=== PATIENT | male | born 1975 ===

== ENCOUNTER 2016-10-01 21:31 | Observation (INO) | payer MEDICAID ==
[2016-10-01 21:36] VITALS: BMI 24.7
--- NOTE | 2016-10-01 22:08 | ED PDOC ---
Arrival/HPI - General Chief Complaint: Abdominal Pain Time Seen by Provider: 10/01/16 21:38 Historian: Patient - History of Present Illness Narrative History of Present Illness (Text): 10/01/16 22:01 Wilfredo Amos is a 41 year old male, with a history of cardiomyopathy with a recent pacemaker placement, presents to the emergency department complaining of intermittent episodes of abdominal muscle spasms/twitching since today afternoon. Patient states that symptoms presented after device settings were reconfigured by device pharmaceutical laboratory technician earlier today. He was seen at [facility] today for evaluation of pain at site of surgery. Currently denies any pain to the area. States that he experienced similar symptoms last week, which resolved after changes to pacemaker settings. Denies any fever, chills, chest pain, shortness of breath, nausea, vomiting, diarrhea, or any other complaints at this time. Time/Duration: Other (today afternoon ) Symptom Onset: Gradual Symptom Course: Intermittent Severity Level: Mild Activities at Onset: Light Past Medical History - Provider Review Nursing Documentation Reviewed: Yes - Infectious Disease Hx of Infectious Diseases: None - Tetanus Immunization Tetanus Immunization: Up to Date - Past Medical History Past Medical History: No Previous - Cardiac Hx Cardiac Disorders: Yes Other/Comment: Unknown cardiac problem - Pulmonary Hx Respiratory Disorders: No - Neurological Hx Neurological Disorder: No - HEENT Hx HEENT Disorder: No - Renal Hx Renal Disorder: Yes Hx Kidney Stones: Yes - Endocrine/Metabolic Hx Endocrine Disorders: No - Hematological/Oncological Hx Blood Disorders: No - Integumentary Hx Dermatological Disorder: No - Musculoskeletal/Rheumatological Hx Musculoskeletal Disorders: No - Gastrointestinal Hx Gastrointestinal Disorders: No - Genitourinary/Gynecological Hx Genitourinary Disorders: No - Psychiatric Hx Psychophysiologic Disorder: No Hx Depression: No Hx Substance Use: No - Past Surgical History Past Surgical History: No Previous - Surgical History Other/Comment: Pt reports he had a defibrillator placed two weeks ago at [facility] - Anesthesia Hx Anesthesia: Yes Hx Anesthesia Reactions: No Hx Malignant Hyperthermia: No - Suicidal Assessment Feels Threatened In Home Enviroment: No Family/Social History - Physician Review Nursing Documentation Reviewed: Yes Family/Social History: No Known Family HX Smoking Status: Never Smoked Hx Alcohol Use: No Hx Substance Use: No Hx Substance Use Treatment: No Allergies/Home Meds Allergies/Adverse Reactions: Allergies No Known Allergies Allergy (Verified 10/01/16 21:36) Home Medications: Home Meds Medication Instructions Recorded Confirmed Alprazolam [Xanax] 0.5 mg PO BID 10/02/16 10/02/16 Atorvastatin [Lipitor] 10 mg PO DAILY 10/02/16 10/02/16 Docusate Sodium [Song' 100 mg PO BID 10/02/16 10/02/16 Laxative] Escitalopram [Lexapro] 10 mg PO DAILY 10/02/16 10/02/16 Hydrocortisone [Anusol-Hc] 25 mg DAILY 10/02/16 10/02/16 Lisinopril [Zestril] 20 mg PO DAILY 10/02/16 10/02/16 Metoprolol Succinate 50 mg PO DAILY 10/02/16 10/02/16 Omeprazole 40 mg PO DAILY 10/02/16 10/02/16 buPROPion XL [Wellbutrin XL] 300 mg DAILY 10/02/16 10/02/16 Review of Systems - Physician Review All systems were reviewed & negative as marked: Yes - Review of Systems Constitutional: Normal. absent: Fatigue, Fevers Respiratory: Normal. absent: SOB, Cough, Sputum Cardiovascular: Normal. absent: Chest Pain Gastrointestinal: Abdominal Pain (abdominal muscle spasms ) Genitourinary Male: Normal Neurological: Normal Psychiatric: Normal Physical Exam Vital Signs Reviewed: Yes Vital Signs Temp Pulse Resp BP Pulse Ox 10/02/16 03:22 62 20 120/70 99 10/02/16 02:22 65 18 122/77 95 10/02/16 00:45 68 17 132/75 97 10/01/16 21:31 97.6 F 75 18 131/77 95 Temperature: Afebrile Blood Pressure: Normal Pulse: Regular Respiratory Rate: Normal Appearance: Positive for: Well-Appearing, Non-Toxic, Comfortable Pain Distress: None Mental Status: Positive for: Alert and Oriented X 3 - Systems Exam Head: Present: Atraumatic, Normocephalic Pupils: Present: PERRL Conjunctiva: Present: Normal Respiratory/Chest: Present: Clear to Auscultation, Good Air Exchange. No: Respiratory Distress, Accessory Muscle Use Cardiovascular: Present: Regular Rate and Rhythm, Normal S1, S2. No: Murmurs Abdomen: Present: Normal Bowel Sounds. No: Tenderness, Distention, Peritoneal Signs Back: Present: Normal Inspection Upper Extremity: Present: Normal Inspection. No: Cyanosis, Edema Lower Extremity: Present: Normal Inspection. No: Edema Neurological: Present: GCS=15, CN II-XII Intact, Speech Normal, Motor Func Grossly Intact, Normal Sensory Function Skin: Present: Warm, Dry, Normal Color. No: Rashes Psychiatric: Present: Alert, Oriented x 3, Normal Insight, Normal Concentration Medical Decision Making ED Course and Treatment: 10/01/16 22:25 EKG interpreted by me: Ventricular paced rhythm at 74 BPM. 10/02/16 01:45 Case discussed with who is aware and agrees with the plan to observe patient on telemetry for pacemaker problem. Accepts patient under hospitalist service. - Lab Interpretations Lab Results: 10/01/16 23:34 10/01/16 23:34 Lab Results 10/01/16 23:34: Troponin I < 0.01 10/01/16 23:34: Sodium 141, Potassium 3.7, Chloride 104, Carbon Dioxide 27, Anion Gap 14, BUN 14, Creatinine 0.8, Est GFR ( Amer) > 60, Est GFR (Non- Af Amer) > 60, Random Glucose 107, Calcium 9.2, Total Bilirubin 0.4, AST 23, ALT 38, Alkaline Phosphatase 85, Total Protein 6.8, Albumin 3.9, Globulin 2.9, Albumin/Globulin Ratio 1.3 10/01/16 23:34: WBC 6.4 D, RBC 4.56, Hgb 14.2, Hct 41.6 L, MCV 91.2, MCH 31.1, MCHC 34.1, RDW 12.7, Plt Count 208, MPV 9.1, Gran % 59.1, Lymph % (Auto) 31.1, Josephine % (Auto) 6.3 H, Eos % (Auto) 3.3, Baso % (Auto) 0.2, Gran # 3.78, Lymph # 2.0, Josephine # 0.4, Eos # 0.2, Baso # 0.01 I have reviewed the lab results: Yes - RAD Interpretation Radiology Orders: 10/01/16 22:56 CHEST PORTABLE [RAD] Stat - EKG Interpretation Interpreted by ED Physician: Yes Type: 12 lead EKG - Medication Orders Current Medication Orders: Discontinued Medications Acetaminophen (Tylenol 325mg Tab) 975 mg PO STAT STA Stop: 10/02/16 00:47 Last Admin: 10/02/16 00:52 Dose: 975 mg Alprazolam (Xanax) 0.5 mg PO BID [facility] PRN Reason: Protocol Last Admin: 10/02/16 09:18 Dose: 0.5 mg Re-Assess: Reassess Psych Meds Document 10/02/16 10:18 CLA (Rec: 10/02/16 11:15 CLA [id number]) Reassess Psych Med Effective Alprazolam (Xanax) 0.5 mg PO BID PRN; Protocol PRN Reason: Anxiety Atorvastatin Calcium (Lipitor) 10 mg PO DAILY [facility] Last Admin: 10/02/16 09:18 Dose: 10 mg Bupropion HCl (Wellbutrin Xl) 300 mg PO DAILY [facility] Last Admin: 10/02/16 11:15 Dose: 300 mg Docusate Sodium (Colace) 100 mg PO BID [facility] Last Admin: 10/02/16 17:19 Dose: Escitalopram Oxalate (Lexapro) 10 mg PO DAILY [facility] Last Admin: 10/02/16 09:18 Dose: 10 mg Famotidine (Pepcid) 20 mg PO 1000,2200 [facility] Last Admin: 10/02/16 09:19 Dose: 20 mg Lisinopril (Zestril) 20 mg PO DAILY [facility] Last Admin: 10/02/16 09:17 Dose: 20 mg Metoprolol Succinate (Toprol Xl) 50 mg PO DAILY [facility] Last Admin: 10/02/16 09:18 Dose: 50 mg Pantoprazole Sodium (Protonix Ec Tab) 40 mg PO ACB [facility] Last Admin: 10/02/16 09:19 Dose: 40 mg - Shantibe Statement The provider has reviewed the documentation as recorded by the Irene Rodriguez Provider Attestation: All medical record entries made by the Irene were at my direction and personally dictated by me. I have reviewed the chart and agree that the record accurately reflects my personal performance of the history, physical exam, medical decision making, and the department course for this patient. I have also personally directed, reviewed, and agree with the discharge instructions and disposition. Disposition/Present on Arrival - Present on Arrival Any Indicators Present on Arrival: No History of DVT/PE: No History of Uncontrolled Diabetes: No Urinary Catheter: No History of Decub. Ulcer: No History Surgical Site Infection Following: None - Disposition Have Diagnosis and Disposition been Completed?: Yes Diagnosis: Pacemaker malfunction Disposition: HOSPITALIZED Disposition Time: 01:45 Patient Plan: Observation Condition: STABLE
[2016-10-01 23:46] LABS: ADD MANUAL DIFF? NO
[2016-10-01 23:59] LABS: ALB/GLOB RATIO 1.3 (1.1-1.8); ALKALINE PHOSPHATASE 85 U/L (38-133); ALT/SGPT 38 U/L (7-56); AST/SGOT 23 U/L (15-59); BILIRUBIN,TOTAL 0.4 mg/dL (0.2-1.3); BLOOD UREA NITROGEN 14 mg/dL (7-21); CALCIUM 9.2 mg/dL (8.4-10.5); CARBON DIOXIDE 27 mmol/L (21-33); CHLORIDE 104 mmol/L (98-107); GFR AFRICAN-AMERICAN > 60; GLUCOSE,RANDOM 107 mg/dL (70-110); POTASSIUM 3.7 mmol/L (3.6-5.0); SODIUM 141 mmol/L (132-148); TOTAL PROTEIN 6.8 g/dL (5.8-8.3)
[2016-10-02 00:24] LABS: BASO # 0.01 K/mm3 (0.0-2.0); BASO % 0.2 % (0.0-3.0); EOS # 0.2 (0.0-0.7); EOS % 3.3 % (1.5-5.0); GRAN # 3.78 (1.4-6.5); GRAN % 59.1 % (50.0-68.0); HEMATOCRIT 41.6 % (42.0-52.0); LYMPH % 31.1 % (22.0-35.0); MEAN CELL VOLUME 91.2 fL (80.0-105.0); MEAN CORPUSCULAR HEMOGLOBIN 31.1 pg (25.0-35.0); MEAN CORPUSCULAR HGB CONC 34.1 g/dl (31.0-37.0); MEAN PLATELET VOLUME 9.1 fl (7.0-11.0); MONO # 0.4 (0.1-0.6); MONO % 6.3 % (1.0-6.0); PLATELET COUNT 208 10^3/uL (120.0-450.0); RED CELL DISTRIBUTION WIDTH 12.7 % (11.5-14.5); WHITE BLOOD COUNT 6.4 10^3/ul (4.5-11.0)
--- NOTE | 2016-10-02 04:23 | CP.PCM.HP ---
Addendum entered and electronically signed by Yobany Flores DO 10/02/16 04: 42: Please verify with PMD, Avtar Porter, if pt regarding pt being on both wellbutrin and lexapro. Addendum entered and electronically signed by Yobany Flores DO 10/02/16 04: 40: Lexapro and Wellbutrin restarted after speaking with Pharamcist. Concerned about Serotonin syndrome, but pharmacist said it is ok for pt to be on both. 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 The pt's laboratory mechanic helper is Dr. Carmelo Casillas, and he placed on the pacemaker in at [facility]. The pt reports that he was at the doctor's office today when a pacemaker control valve technician tested the pacemaker. He reports that he was fine during the day, but at night, he experienced his right abdominal muscles pulsating and jumping. He felt very uncomfortable and scared and decided to come to the hospital. He reports that a similar experience happened last week at Dr. Casillas's office after having the pacemaker voltage adjusted, but Dr. Casillas reported that it was nothing to be worried about. Pt reports that when the symptoms occurred today, he called his physician but was unable to get in touch with him. Pt denies any current chest pain, shortness of breath, fever, chills, nausea, and vomiting. PMD: Avtar Porter APN [facility] Polish Compounder: Dr. Carmelo Casillas Home Coordinator: Dr. 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 Casillas Social Hx: Former smoker (1 pack/day), denies alcohol use, denies drug use Family Hx: no significant family hx reported; no cardiac disease Present on Admission - Present on Admission Any Indicators Present on Admission: No Review of Systems - Constitutional Constitutional: absent: Chills, Fever - EENT Eyes: absent: Blind Spots, Blurred Vision Ears: absent: Disequilibrium, Dizziness Nose/Mouth/Throat: absent: Epistaxis - Cardiovascular Cardiovascular: absent: Chest Pain, Dyspnea, Leg Edema, Palpitations - Respiratory Respiratory: absent: Cough, Dyspnea - Gastrointestinal Gastrointestinal: absent: Abdominal Pain, Bloating - Musculoskeletal Musculoskeletal: absent: Abnormal Gait, Myalgias - Integumentary Integumentary: absent: Alopecia, Bleeding Lesions - Neurological Neurological: absent: Abnormal Gait, Confusion - Psychiatric Psychiatric: Depression Past Patient History - Infectious Disease Hx of Infectious Diseases: None - Tetanus Immunizations Tetanus Immunization: Up to Date - Past Social History Smoking Status: Never Smoked - CARDIAC Hx Cardiac Disorders: Yes Other/Comment: Unknown cardiac problem - PULMONARY Hx Respiratory Disorders: No - NEUROLOGICAL Hx Neurological Disorder: No - HEENT Hx HEENT Problems: No - RENAL Hx Chronic Kidney Disease: Yes Hx Kidney Stones: Yes - ENDOCRINE/METABOLIC Hx Endocrine Disorders: No - HEMATOLOGICAL/ONCOLOGICAL Hx Blood Disorders: No - INTEGUMENTARY Hx Dermatological Problems: No - MUSCULOSKELETAL/RHEUMATOLOGICAL Hx Musculoskeletal Disorders: No - GASTROINTESTINAL Hx Gastrointestinal Disorders: No - GENITOURINARY/GYNECOLOGICAL Hx Genitourinary Disorders: No - PSYCHIATRIC Hx Psychophysiologic Disorder: No Hx Depression: No Hx Substance Use: No - SURGICAL HISTORY Other/Comment: Pt reports he had a defibrillator placed two weeks ago at [facility] - ANESTHESIA Hx Anesthesia: Yes Hx Anesthesia Reactions: No Hx Malignant Hyperthermia: No Meds Allergies/Adverse Reactions: Allergies Allergy/AdvReac Type Severity Reaction Status Date / Time No Known Allergies Allergy Verified 10/01/16 21:36 Physical Exam - Constitutional Appears: No Acute Distress - Head Exam Head Exam: ATRAUMATIC, NORMOCEPHALIC - Eye Exam Eye Exam: EOMI, PERRL Pupil Exam: NORMAL ACCOMODATION, PERRL - Respiratory Exam Respiratory Exam: Clear to Auscultation Bilateral. absent: Rhonchi, Wheezes, Respiratory Distress - Cardiovascular Exam Cardiovascular Exam: +S1, +S2. absent: Gallop, Rubs - GI/Abdominal Exam GI & Abdominal Exam: Normal Bowel Sounds, Soft. absent: Tenderness - Extremities Exam Extremities exam: Positive for: full ROM. Negative for: pedal edema - Neurological Exam Neurological exam: Alert, Oriented x3 - Psychiatric Exam Psychiatric exam: Normal Affect, Normal Mood - Skin Skin Exam: Normal Color, Warm Results - Vital Signs Recent Vital Signs: Last Vital Signs Temp 97.6 F 10/01/16 21:31 Pulse 62 10/02/16 03:22 Resp 20 10/02/16 03:22 BP 120/70 10/02/16 03:22 Pulse Ox 99 10/02/16 03:22 - Labs Result Diagrams: 10/01/16 23:34 10/01/16 23:34 Assessment & Plan - Assessment and Plan (Free Text) Assessment: Abdominal Fasciculations: Likely secondary to voltage changes in pacemaker EKG- ventricular paced rhythm Troponins negative x 1 CXR - pending read Speak with laboratory mechanic helper, Dr. Casillas Viral myocarditis: s/p pacemaker placement 09/18/16 HTN: Zestril 20 mg po qd Depression: Lexapro 10 mg po qd Wellbutrin 300 mg po qd Hypercholesterolemia: Lipitor 10 mg po qd Prophylactic Measures: DVT: SCDs GI: Pepcid 20 mg po bid <Ji Deutsch P - Last Filed: 10/12/16 19:37> Results - Vital Signs Recent Vital Signs: Last Vital Signs Temp 97.8 F 10/02/16 12:00 Pulse 66 10/02/16 12:00 Resp 18 10/02/16 12:00 BP 104/68 10/02/16 17:19 Pulse Ox 99 10/02/16 12:00 - Labs Result Diagrams: 10/01/16 23:34 10/01/16 23:34 Attending/Attestation - Attestation I have personally seen and examined this patient.: Yes I have fully participated in the care of the patient.: Yes I have reviewed all pertinent clinical information: Yes
[2016-10-02 05:29] VITALS: RESP 18
[2016-10-02] MEDS ORDERED: Pantoprazole 40 mg EC Tab PO SCH (07:30)
--- NOTE | 2016-10-02 09:20 | RAD ---
HISTORY: check pm leads COMPARISON: 01/15/2016 FINDINGS: LUNGS: No active pulmonary disease. PLEURA: No significant pleural effusion identified, no pneumothorax apparent. CARDIOVASCULAR: Normal. OSSEOUS STRUCTURES: No significant abnormalities. VISUALIZED UPPER ABDOMEN: Normal. OTHER FINDINGS: Three separate leads are seen 1 in the right atrium and 1 in the right ventricle. A 3rd small caliber lead is seen more superiorly along the left heart border IMPRESSION: No active disease.
[2016-10-02 09:21] VITALS: PULSE 66
[2016-10-02] MEDS ORDERED: Metoprolol Succinate 50 mg XL Tab PO SCH (10:00)
[2016-10-02] MEDS ORDERED: buPROPion 300 mg/24 Hours XL Tab PO SCH (10:00)
--- NOTE | 2016-10-02 11:28 | CARD ---
APPROVED REPORT EKG Measurement Heart [id number] <Conclusion> Electronic ventricular pacemaker
--- NOTE | 2016-10-02 11:31 | CP.PCM.PCO ---
Physician Communication Note - Physician Communication Note Physician Communication Note: Confirmed meds w/ pharmacy. Pt takes Lexapro 10mg qd & Wellbutrin 300mg qd
--- NOTE | 2016-10-02 15:17 | CON ---
DATE: 10/02/2016 REASON FOR CONSULTATION: Muscular twitches related to pacemaker activation. The patient is a 41-year-old male who was diagnosed with viral cardiomyopathy, underwent car diac catheterization 3 weeks ago. The patient does not recall the hospital where he underwent the ca rdiac catheterization and was told he has no blockages. Two weeks ago at [facility], the yanique benton underwent an ICD, biventricular pacemaker placement. The patient presents because of abdominal muscle twitches that made him uncomfortable overnight. The patient was admitted to the ICU after the primary physician discussed the case with the patient's supply chain design manager at [facility]. The patient's ICD was interrogated and the left ventricular lead was disabled. Following that, the p atient's twitches disappeared. The patient denies any discharge of the ICD since it was placed 2 wee ks ago. The patient denies any retrosternal chest pain or shortness of breath. SOCIAL HISTORY: The patient is a former smoker. He is a nondrinker. MEDICATIONS: Colace 100 mg twice a day, Lipitor 10 mg once a day, Toprol-XL 50 mg once a day, Zestri l 20 mg once a day. PHYSICAL EXAMINATION: GENERAL: The patient is a middle-aged male who does not appear to be in any distress. VITAL SIGNS: Blood pressure 115/80, heart rate 66, temperature 97.6, respiration 18. HEENT: Normocephalic. NECK: No JVD. CHEST: Clear. HEART: S1, S2 regular. ABDOMEN: Soft. EXTREMITIES: No edema. LABORATORIES: Today's SMA-7 is entirely within normal limits. Two sets of troponins are negative. CBC: WBC 6.4, hemoglobin and hematocrit 14.2 and 41.6, platelet count 208,000. EKG revealed an atri al sensed, biventricular paced QRS complexes. ASSESSMENT: 1. Status post implantable cardioverter-defibrillator, biventricular pacemaker with possibly phrenic nerve stimulation with the pacing leads, most likely the left ventricular lead. 2. Nonischemic cardiomyopathy. RECOMMENDATIONS: Continue current Lipitor, Toprol-XL, and Zestril. Obtain an echocardiogram. Jovan Ch MD cc: [id number] TT: 10/02/2016 15:16:34 Confirmation # [id number] Dictation # [id number]
--- NOTE | 2016-10-02 16:16 | CP.PCM.DIS ---
<ArchieNatali - Last Filed: 10/02/16 16:10> Provider - Provider Date of Admission: 10/02/16 01:42 Attending physician: Clarita Be MD Primary care physician: Avtar Porter APN Consults: Cardiology: Dr. Abraham Time Spent in preparation of Discharge (in minutes): 45 Diagnosis - Discharge Diagnosis (1) Pacemaker Status: Acute (2) H/O viral myocarditis Status: Chronic Hospital Course - Lab Results Lab Results: Most Recent Lab Values WBC 6.4 10^3/ul (4.5-11.0) D 10/01/16 23:34 RBC 4.56 10^6/uL (3.5-6.1) 10/01/16 23:34 Hgb 14.2 gm/dL (14.0-18.0) 10/01/16 23:34 Hct 41.6 % (42.0-52.0) L 10/01/16 23:34 MCV 91.2 fL (80.0-105.0) 10/01/16 23:34 MCH 31.1 pg (25.0-35.0) 10/01/16 23:34 MCHC 34.1 g/dl (31.0-37.0) 10/01/16 23:34 RDW 12.7 % (11.5-14.5) 10/01/16 23:34 Plt Count 208 10^3/uL (120.0-450.0) 10/01/16 23:34 MPV 9.1 fl (7.0-11.0) 10/01/16 23:34 Gran % 59.1 % (50.0-68.0) 10/01/16 23:34 Lymph % (Auto) 31.1 % (22.0-35.0) 10/01/16 23:34 [place] % (Auto) 6.3 % (1.0-6.0) H 10/01/16 23:34 Eos % (Auto) 3.3 % (1.5-5.0) 10/01/16 23:34 Baso % (Auto) 0.2 % (0.0-3.0) 10/01/16 23:34 Gran # 3.78 (1.4-6.5) 10/01/16 23:34 Lymph # 2.0 (1.2-3.4) 10/01/16 23:34 [place] # 0.4 (0.1-0.6) 10/01/16 23:34 Eos # 0.2 (0.0-0.7) 10/01/16 23:34 Baso # 0.01 K/mm3 (0.0-2.0) 10/01/16 23:34 Sodium 141 mmol/L (132-148) 10/01/16 23:34 Potassium 3.7 mmol/L (3.6-5.0) 10/01/16 23:34 Chloride 104 mmol/L (98-107) 10/01/16 23:34 Carbon Dioxide 27 mmol/L (21-33) 10/01/16 23:34 Anion Gap 14 (10-20) 10/01/16 23:34 BUN 14 mg/dL (7-21) 10/01/16 23:34 Creatinine 0.8 mg/dL (0.5-1.4) 10/01/16 23:34 Est GFR ( Amer) > 60 10/01/16 23:34 Est GFR (Non-Af Amer) > 60 10/01/16 23:34 Random Glucose 107 mg/dL (70-110) 10/01/16 23:34 Calcium 9.2 mg/dL (8.4-10.5) 10/01/16 23:34 Total Bilirubin 0.4 mg/dL (0.2-1.3) 10/01/16 23:34 AST 23 U/L (15-59) 10/01/16 23:34 ALT 38 U/L (7-56) 10/01/16 23:34 Alkaline Phosphatase 85 U/L (38-133) 10/01/16 23:34 Troponin I 0.01 ng/mL 10/02/16 11:30 Total Protein 6.8 g/dL (5.8-8.3) 10/01/16 23:34 Albumin 3.9 g/dL (3.0-4.8) 10/01/16 23:34 Globulin 2.9 gm/dL 10/01/16 23:34 Albumin/Globulin Ratio 1.3 (1.1-1.8) 10/01/16 23:34 - Hospital Course Hospital Course: HPI: Pt is a 41 year old male with a PMHx of viral myocarditis and an ejection fraction of 20% s/p pacemaker placement on 09/18/16 who presented to the ED with complaints of right abdominal muscle fasiculations following an adjustment to his pacemaker earlier in the day today. The pt's professor of religion is Dr. Carmelo Casillas, and he placed on the pacemaker in at [facility]. The pt reports that he was at the doctor's office today when a pacemaker cadd technician tested the pacemaker. He reports that he was fine during the day, but at night, he experienced his right abdominal muscles pulsating and jumping. He felt very uncomfortable and scared and decided to come to the hospital. He reports that a similar experience happened last week at Dr. Casillas's office after having the pacemaker voltage adjusted, but Dr. Casillas reported that it was nothing to be worried about. Pt reports that when the symptoms occurred today, he called his physician but was unable to get in touch with him. Pt denies any current chest pain, shortness of breath, fever, chills, nausea, and vomiting. EKG on admission showed ventricular paced rhythm. Troponins were negative. Patient's CXR showed no active disease. Cardiology was consulted and recommended outpatient follow up with patient's own qa specialist. Patient's symptoms improved. Patient is to follow up with PMD upon discharge. Patient is to follow up with his qa specialist upon discharge. Please see EMR for full details. - Date & Time of H&P Date of H&P: 10/02/16 Time of H&P: 16:12 Discharge Exam - Head Exam Head Exam: ATRAUMATIC, NORMOCEPHALIC - ENT Exam ENT Exam: Mucous Membranes Moist - Respiratory Exam Respiratory Exam: absent: Accessory Muscle Use, Respiratory Distress - Extremities Exam Additional comments: no edema or tenderness - Neurological Exam Neurological exam: Alert, Oriented x3 - Psychiatric Exam Psychiatric exam: Normal Affect, Normal Mood - Skin Skin Exam: Dry, Intact, Normal Color, Warm Discharge Plan - Follow Up Plan Condition: GOOD Disposition: HOME/ ROUTINE Instructions: Pacemaker (DC), Dilated Cardiomyopathy (DC) Additional Instructions: Patient is to follow up with PMD upon discharge. Patient is to follow up with his qa specialist upon discharge. Referrals: Avtar Porter APN [Primary Care Provider] - <Gómez,Irfana B - Last Filed: 10/03/16 10:45> Provider - Provider Date of Admission: 10/02/16 01:42 Attending physician: Clarita Be MD Primary care physician: Avtar Walker [facility] Course - Lab Results Lab Results: Most Recent Lab Values WBC 6.4 10^3/ul (4.5-11.0) D 10/01/16 23:34 RBC 4.56 10^6/uL (3.5-6.1) 10/01/16 23:34 Hgb 14.2 gm/dL (14.0-18.0) 10/01/16 23:34 Hct 41.6 % (42.0-52.0) L 10/01/16 23:34 MCV 91.2 fL (80.0-105.0) 10/01/16 23:34 MCH 31.1 pg (25.0-35.0) 10/01/16 23:34 MCHC 34.1 g/dl (31.0-37.0) 10/01/16 23:34 RDW 12.7 % (11.5-14.5) 10/01/16 23:34 Plt Count 208 10^3/uL (120.0-450.0) 10/01/16 23:34 MPV 9.1 fl (7.0-11.0) 10/01/16 23:34 Gran % 59.1 % (50.0-68.0) 10/01/16 23:34 Lymph % (Auto) 31.1 % (22.0-35.0) 10/01/16 23:34 [place] % (Auto) 6.3 % (1.0-6.0) H 10/01/16 23:34 Eos % (Auto) 3.3 % (1.5-5.0) 10/01/16 23:34 Baso % (Auto) 0.2 % (0.0-3.0) 10/01/16 23:34 Gran # 3.78 (1.4-6.5) 10/01/16 23:34 Lymph # 2.0 (1.2-3.4) 10/01/16 23:34 [place] # 0.4 (0.1-0.6) 10/01/16 23:34 Eos # 0.2 (0.0-0.7) 10/01/16 23:34 Baso # 0.01 K/mm3 (0.0-2.0) 10/01/16 23:34 Sodium 141 mmol/L (132-148) 10/01/16 23:34 Potassium 3.7 mmol/L (3.6-5.0) 10/01/16 23:34 Chloride 104 mmol/L (98-107) 10/01/16 23:34 Carbon Dioxide 27 mmol/L (21-33) 10/01/16 23:34 Anion Gap 14 (10-20) 10/01/16 23:34 BUN 14 mg/dL (7-21) 10/01/16 23:34 Creatinine 0.8 mg/dL (0.5-1.4) 10/01/16 23:34 Est GFR ( Amer) > 60 10/01/16 23:34 Est GFR (Non-Af Amer) > 60 10/01/16 23:34 Random Glucose 107 mg/dL (70-110) 10/01/16 23:34 Calcium 9.2 mg/dL (8.4-10.5) 10/01/16 23:34 Total Bilirubin 0.4 mg/dL (0.2-1.3) 10/01/16 23:34 AST 23 U/L (15-59) 10/01/16 23:34 ALT 38 U/L (7-56) 10/01/16 23:34 Alkaline Phosphatase 85 U/L (38-133) 10/01/16 23:34 Troponin I 0.01 ng/mL 10/02/16 11:30 Total Protein 6.8 g/dL (5.8-8.3) 10/01/16 23:34 Albumin 3.9 g/dL (3.0-4.8) 10/01/16 23:34 Globulin 2.9 gm/dL 10/01/16 23:34 Albumin/Globulin Ratio 1.3 (1.1-1.8) 10/01/16 23:34 Attending/Attestation - Attestation I have personally seen and examined this patient.: Yes I have fully participated in the care of the patient.: Yes I have reviewed all pertinent clinical information, including history, physical exam and plan: Yes Notes (Text): I have seen and examined this patient at bedside. Agree with the note above with the following additions/ exceptions: Briefly this is 41 year old male with history of viral myocarditis, CHF (EF 30% ) s/p ICD with biventricular pace maker leads who got admitted for abdominal discomfort caused by abdominal fasciculation due to phrenic nerve irritation. ICD was interrogated and Left ventricular lead was disabled. His abdominal discomfort and fasciculation got resolved. Patient feels comfortable going home. Discussed with Behavioral Psychologist in detail. Patient was advised to follow up with Dr Casillas. Dr Rayray Gómez
[2016-10-02 16:26] VITALS: TEMP 97.8; O2SAT 99
[2016-10-02 17:19] VITALS: BP 104/68
== END 2016-10-02 16:00 | disposition home or self-care (01) ==
LOC: ED 21:31 → ERH 10-02 01:42 → CCU 10-02 04:40
PROVIDERS: ADMIT Internal Medicine; ATTEND Internal Medicine
DX: R25.3 Fasciculation (principal); I42.9 Cardiomyopathy, unspecified; I11.0 Hypertensive heart disease with heart failure; I50.9 Heart failure, unspecified; F32.9 Major depressive disorder, single episode, unspecified; E78.00 Pure hypercholesterolemia, unspecified; Z95.810 Presence of automatic (implantable) cardiac defibrillator; Z86.79 Personal history of other diseases of the circulatory system; Z87.891 Personal history of nicotine dependence
CPT/HCPCS: 71010; 80053; 84484; 85025; 93005; 99285; G0378

== ENCOUNTER 2016-12-02 12:35 | Emergency (ER) | payer MEDICAID ==
[2016-12-02 12:49] VITALS: BMI 25.5
[2016-12-02 12:51] VITALS: RESP 18; TEMP 97.9; O2SAT 100
--- NOTE | 2016-12-02 13:15 | ED PDOC ---
Arrival/HPI - General Chief Complaint: Dizziness/Lightheaded Time Seen by Provider: 12/02/16 12:37 Historian: Patient - History of Present Illness Narrative History of Present Illness (Text): 12/02/16 13:08 Wilfredo Amos is a 41 year old male, with a history of viral myocarditis with ejection fraction of 20% s/p defibrillator placement in 2016, hypertension and hyperlipidemia, presents to the emergency department complaining of intermittent headache discomfort since yesterday. Describes headache as an "electricity" sensation to bi-temporal and posterior head. Reports that symptoms are accompanied with spells of dizziness. Patient also notes of difficulty breathing which is worsened with exertion, which is baseline. Patient states he recently had a surgery to repair his defibrillator device because a lead was out of place. Denies any fever, chills, neck stiffness , chest pain, abdominal pain, nausea, vomiting, diarrhea, numbness/weakness of extremity, urinary symptoms, or any other complaints at this time. PMD: . EP Sonja Time/Duration: Other (yesterday ) Symptom Onset: Gradual Symptom Course: Intermittent Activities at Onset: Light Past Medical History - Provider Review Nursing Documentation Reviewed: Yes - Infectious Disease Hx of Infectious Diseases: None - Tetanus Immunization Tetanus Immunization: Up to Date - Past Medical History Past Medical History: No Previous - Cardiac Hx Cardiac Disorders: Yes Hx Pacemaker: Yes (Pt states he has a defibrillator.) Other/Comment: Unknown cardiac problem-patient does not know - Pulmonary Hx Respiratory Disorders: No - Neurological Hx Neurological Disorder: No - HEENT Hx HEENT Disorder: No - Renal Hx Renal Disorder: Yes Hx Kidney Stones: Yes - Endocrine/Metabolic Hx Endocrine Disorders: No - Hematological/Oncological Hx Blood Disorders: No - Integumentary Hx Dermatological Disorder: No - Musculoskeletal/Rheumatological Hx Musculoskeletal Disorders: No - Gastrointestinal Hx Gastrointestinal Disorders: No - Genitourinary/Gynecological Hx Genitourinary Disorders: No - Psychiatric Hx Psychophysiologic Disorder: No Hx Depression: No Hx Substance Use: No - Past Surgical History Past Surgical History: No Previous - Surgical History Other/Comment: Pt reports he had a defibrillator inserted at [facility] - Anesthesia Hx Anesthesia: Yes Hx Anesthesia Reactions: No Hx Malignant Hyperthermia: No - Suicidal Assessment Feels Threatened In Home Enviroment: No Family/Social History - Physician Review Nursing Documentation Reviewed: Yes Family/Social History: No Known Family HX Smoking Status: Never Smoked Hx Alcohol Use: No Hx Substance Use: No Hx Substance Use Treatment: No Allergies/Home Meds Allergies/Adverse Reactions: Allergies No Known Allergies Allergy (Verified 12/02/16 12:48) Home Medications: Home Meds Medication Instructions Recorded Confirmed Alprazolam [Xanax] 0.5 mg PO BID 10/02/16 10/02/16 Atorvastatin [Lipitor] 10 mg PO DAILY 10/02/16 10/02/16 Docusate Sodium [Song' 100 mg PO BID 10/02/16 10/02/16 Laxative] Escitalopram [Lexapro] 10 mg PO DAILY 10/02/16 10/02/16 Hydrocortisone [Anusol-Hc] 25 mg DAILY 10/02/16 10/02/16 Lisinopril [Zestril] 20 mg PO DAILY 10/02/16 10/02/16 Metoprolol Succinate 50 mg PO DAILY 10/02/16 10/02/16 Omeprazole 40 mg PO DAILY 10/02/16 10/02/16 buPROPion XL [Wellbutrin XL] 300 mg DAILY 10/02/16 10/02/16 Review of Systems - Physician Review All systems were reviewed & negative as marked: Yes - Review of Systems Constitutional: Normal. absent: Fatigue, Fevers Respiratory: SOB, Cough. absent: Sputum Cardiovascular: absent: Chest Pain, Palpitations Gastrointestinal: absent: Abdominal Pain, Diarrhea, Nausea, Vomiting Neurological: Headache, Dizziness. absent: Focal Weakness Psychiatric: Normal Physical Exam - Physical Exam Narrative Physical Exam (Text): Constitutional: No acute distress. Head: Normocephalic. Atraumatic. Eyes: PERRL. ENT: Moist mucous membranes. Neck: Supple. Cardiovascular: Regular rate. Chest: No tenderness. Left chest wall surgical site healing, no erythema or discharge. Respiratory: Clear to auscultation bilaterally. GI: Soft. Nontender. Nondistended. Back: No CVA tenderness. Musculoskeletal: No tenderness or swelling of extremities. Skin: No rash. Neurologic: Alert, no focal deficit. Vital Signs Reviewed: Yes Vital Signs Temp Pulse Resp BP Pulse Ox 12/02/16 13:38 79 18 121/71 100 12/02/16 12:51 97.9 F 81 18 123/75 100 Temperature: Afebrile Blood Pressure: Normal Pulse: Regular Respiratory Rate: Normal Appearance: Positive for: Well-Appearing, Non-Toxic, Comfortable Pain Distress: None Mental Status: Positive for: Alert and Oriented X 3 Medical Decision Making ED Course and Treatment: 12/02/16 13:18 Impression: A 41 year old male who presents to the emergency department complaining of intermittent episodes headache and dizziness. Plan: -- EKG -- CT Head -- Labs -- Troponin -- CXR -- Reassess and disposition Progress Notes: 12/02/16 14:50 CT HEAD WITHOUT CONTRAST. FINDINGS: HEMORRHAGE: No intracranial hemorrhage. BRAIN: No mass effect or edema. No atrophy or chronic microvascular ischemic changes. VENTRICLES: Unremarkable. No hydrocephalus. CALVARIUM: Unremarkable. PARANASAL SINUSES: Unremarkable as visualized. No significant inflammatory changes. MASTOID AIR CELLS: Unremarkable as visualized. No inflammatory changes. OTHER FINDINGS: None. IMPRESSION: No acute findings Chest X-ray interpreted by me: No active disease. EKG NSR 77 bpm, LBBB, no concordant ST elevations. Patient states he feels well. In no distress. He states he will follow up with Dr. Casillas. Discharged home, instructed to return to ER for worsening pain, dyspnea, headache, vomiting, or any other problem. - Lab Interpretations Lab Results: 12/02/16 13:15 12/02/16 13:15 Lab Results 12/02/16 13:15: Sodium 141, Potassium 3.7, Chloride 106, Carbon Dioxide 26, Anion Gap 13, BUN 15, Creatinine 0.8, Est GFR ( Amer) > 60, Est GFR (Non- Af Amer) > 60, Random Glucose 112 H, Calcium 9.3, Total Bilirubin 0.4, AST 26, ALT 36, Alkaline Phosphatase 99, Total Creatine Kinase 80, Troponin I < 0.01, Total Protein 7.0, Albumin 4.4, Globulin 2.6, Albumin/Globulin Ratio 1.7 12/02/16 13:15: WBC 5.1 D, RBC 4.68, Hgb 14.6, Hct 43.4, MCV 92.7, MCH 31.2, MCHC 33.6, RDW 13.5, Plt Count 193, MPV 9.7, Gran % 59.1, Lymph % (Auto) 28.0, [place] % (Auto) 7.8 H, Eos % (Auto) 4.9, Baso % (Auto) 0.2, Gran # 3.04, Lymph # 1.4, [place] # 0.4, Eos # 0.3, Baso # 0.01 I have reviewed the lab results: Yes - RAD Interpretation Radiology Orders: 12/02/16 13:08 HEAD W/O CONTRAST [CT] Stat CHEST PORTABLE [RAD] Stat Pump Operator Byproducts: Radiologist - EKG Interpretation Interpreted by ED Physician: Yes Type: 12 lead EKG - Scribe Statement The provider has reviewed the documentation as recorded by the Shantibe Zoey Rodriguez Provider Scribe Attestation: All medical record entries made by the Shantibe were at my direction and personally dictated by me. I have reviewed the chart and agree that the record accurately reflects my personal performance of the history, physical exam, medical decision making, and the department course for this patient. I have also personally directed, reviewed, and agree with the discharge instructions and disposition. Disposition/Present on Arrival - Present on Arrival Any Indicators Present on Arrival: No History of DVT/PE: No History of Uncontrolled Diabetes: No Urinary Catheter: No History of Decub. Ulcer: No History Surgical Site Infection Following: None - Disposition Have Diagnosis and Disposition been Completed?: Yes Diagnosis: Headache Disposition: HOME/ ROUTINE Disposition Time: 14:51 Patient Plan: Discharge Condition: STABLE Discharge Instructions (ExitCare): Implantable Cardioverter Defibrillator (GEN) , Acute Headache (ED) Referrals: Ally Porter DO [Primary Care Provider] - Follow up with primary
[2016-12-02 13:26] LABS: ADD MANUAL DIFF? NO
[2016-12-02 13:28] LABS: BASO # 0.01 K/mm3 (0.0-2.0); BASO % 0.2 % (0.0-3.0); EOS # 0.3 (0.0-0.7); EOS % 4.9 % (1.5-5.0); GRAN # 3.04 (1.4-6.5); GRAN % 59.1 % (50.0-68.0); HEMATOCRIT 43.4 % (42.0-52.0); LYMPH # 1.4 (1.2-3.4); MEAN CELL VOLUME 92.7 fL (80.0-105.0); MEAN CORPUSCULAR HEMOGLOBIN 31.2 pg (25.0-35.0); MEAN CORPUSCULAR HGB CONC 33.6 g/dl (31.0-37.0); MEAN PLATELET VOLUME 9.7 fl (7.0-11.0); MONO # 0.4 (0.1-0.6); MONO % 7.8 % (1.0-6.0); PLATELET COUNT 193 10^3/uL (120.0-450.0); RED CELL DISTRIBUTION WIDTH 13.5 % (11.5-14.5); WHITE BLOOD COUNT 5.1 10^3/ul (4.5-11.0)
[2016-12-02 13:39] LABS: ALB/GLOB RATIO 1.7 (1.1-1.8); ALKALINE PHOSPHATASE 99 U/L (38-133); ALT/SGPT 36 U/L (7-56); AST/SGOT 26 U/L (15-59); BILIRUBIN,TOTAL 0.4 mg/dL (0.2-1.3); BLOOD UREA NITROGEN 15 mg/dL (7-21); CALCIUM 9.3 mg/dL (8.4-10.5); CARBON DIOXIDE 26 mmol/L (21-33); CHLORIDE 106 mmol/L (98-107); GFR AFRICAN-AMERICAN > 60; GLUCOSE,RANDOM 112 mg/dL (70-110); POTASSIUM 3.7 mmol/L (3.6-5.0); SODIUM 141 mmol/L (132-148)
[2016-12-02 13:53] LABS: TROPONIN I < 0.01 ng/mL
--- NOTE | 2016-12-02 14:48 | CT ---
PROCEDURE: CT HEAD WITHOUT CONTRAST. HISTORY: headache, dizziness COMPARISON: 05/17/2016 TECHNIQUE: Axial computed tomography images were obtained through the head/brain without intravenous contrast. Radiation dose: Total exam DLP = 735 mGy-cm. This CT exam was performed using one or more of the following dose reduction techniques: Automated exposure control, adjustment of the mA and/or kV according to patient size, and/or use of iterative reconstruction technique. FINDINGS: HEMORRHAGE: No intracranial hemorrhage. BRAIN: No mass effect or edema. No atrophy or chronic microvascular ischemic changes. VENTRICLES: Unremarkable. No hydrocephalus. CALVARIUM: Unremarkable. PARANASAL SINUSES: Unremarkable as visualized. No significant inflammatory changes. MASTOID AIR CELLS: Unremarkable as visualized. No inflammatory changes. OTHER FINDINGS: None. IMPRESSION: No acute findings
--- NOTE | 2016-12-02 15:05 | RAD ---
HISTORY: dizziness, icd COMPARISON: 10/01/2016 at 11:40 P FINDINGS: LUNGS: No active pulmonary disease. PLEURA: No significant pleural effusion identified, no pneumothorax apparent. CARDIOVASCULAR: Pacemaker device /AICD device and leads similar in appearance OSSEOUS STRUCTURES: No significant abnormalities. VISUALIZED UPPER ABDOMEN: Normal. OTHER FINDINGS: None. IMPRESSION: No active disease. No interval pathology appreciated
[2016-12-02 15:18] VITALS: BP 118/68; PULSE 75
--- NOTE | 2016-12-02 19:48 | CARD ---
APPROVED REPORT EKG Measurement Heart [id number] <Conclusion> Normal sinus rhythm Left bundle branch block Abnormal ECG
== END 2016-12-02 15:24 | disposition home or self-care (01) ==
LOC: ED 12:35
DX: R51 Headache (principal); E78.5 Hyperlipidemia, unspecified; I10 Essential (primary) hypertension

== ENCOUNTER 2017-01-25 21:47 | Emergency (ER) | payer MEDICAID ==
[2017-01-25 21:49] VITALS: BMI 24.3
[2017-01-25 22:07] VITALS: TEMP 98.2
--- NOTE | 2017-01-25 22:26 | ED PDOC ---
Arrival/HPI - General Chief Complaint: Medical Clearance Time Seen by Provider: 01/25/17 21:57 Historian: Patient - History of Present Illness Narrative History of Present Illness (Text): 01/25/17 21:58 Wilfredo Amos is a 41 year old male, with a history of cardiomyopathy and pacemaker placement with AICD, presents to the emergency department complaining of intermittent episodes of left upper abdominal/lower chest muscle spasms/twitching since an hour ago, especially when breathing. Patient reports having shortness of breath due to the spasms. He states that he experienced similar symptoms before, which were resolved after changes to pacemaker settings. Denies any fever, chills, chest pain, nausea, vomiting, diarrhea, or any other complaints at this time. Time/Duration: 1 hour Symptom Onset: Sudden Symptom Course: Unchanged Quality: Other (abdominal twitiching ) Modifying Factors (Text): worse when sitting up and inhalation Associated Symptoms (Text): headache and shortness of breath Past Medical History - Provider Review Nursing Documentation Reviewed: Yes - Infectious Disease Hx of Infectious Diseases: None - Tetanus Immunization Tetanus Immunization: Up to Date - Past Medical History Past Medical History: No Previous - Cardiac Hx Cardiac Disorders: Yes Hx Pacemaker: Yes (Pt states he has a defibrillator.) Other/Comment: Unknown cardiac problem-patient does not know - Pulmonary Hx Respiratory Disorders: No - Neurological Hx Neurological Disorder: No - HEENT Hx HEENT Disorder: No - Renal Hx Renal Disorder: Yes Hx Kidney Stones: Yes - Endocrine/Metabolic Hx Endocrine Disorders: No - Hematological/Oncological Hx Blood Disorders: No - Integumentary Hx Dermatological Disorder: No - Musculoskeletal/Rheumatological Hx Musculoskeletal Disorders: No - Gastrointestinal Hx Gastrointestinal Disorders: No - Genitourinary/Gynecological Hx Genitourinary Disorders: No - Psychiatric Hx Psychophysiologic Disorder: No Hx Depression: No Hx Substance Use: No - Past Surgical History Past Surgical History: No Previous - Surgical History Other/Comment: Pt reports he had a defibrillator inserted at [facility] - Anesthesia Hx Anesthesia: Yes Hx Anesthesia Reactions: No Hx Malignant Hyperthermia: No - Suicidal Assessment Feels Threatened In Home Enviroment: No Family/Social History - Physician Review Nursing Documentation Reviewed: Yes Family/Social History: Unknown Family HX Smoking Status: Never Smoked Hx Alcohol Use: No Hx Substance Use: No Hx Substance Use Treatment: No Allergies/Home Meds Allergies/Adverse Reactions: Allergies No Known Allergies Allergy (Verified 12/02/16 12:48) Home Medications: Home Meds Medication Instructions Recorded Confirmed Alprazolam [Xanax] 0.5 mg PO BID 10/02/16 01/25/17 Atorvastatin [Lipitor] 10 mg PO DAILY 10/02/16 01/25/17 Docusate Sodium [Song' 100 mg PO BID 10/02/16 01/25/17 Laxative] Escitalopram [Lexapro] 10 mg PO DAILY 10/02/16 01/25/17 Hydrocortisone [Anusol-Hc] 25 mg DAILY 10/02/16 01/25/17 Lisinopril [Zestril] 20 mg PO DAILY 10/02/16 01/25/17 Metoprolol Succinate 50 mg PO DAILY 10/02/16 01/25/17 Omeprazole 40 mg PO DAILY 10/02/16 01/25/17 buPROPion XL [Wellbutrin XL] 300 mg DAILY 10/02/16 01/25/17 Review of Systems - Review of Systems Constitutional: absent: Fevers Respiratory: SOB (due to spasm ) Cardiovascular: absent: Chest Pain Gastrointestinal: Other (twitching sensation on diaphragm) Musculoskeletal: absent: Back Pain Neurological: Headache (mild). absent: Dizziness, Focal Weakness Physical Exam Vital Signs Reviewed: Yes Vital Signs Temp Pulse Resp BP Pulse Ox 01/25/17 22:06 98.2 F 84 20 134/74 95 Temperature: Afebrile Blood Pressure: Normal Pulse: Regular Respiratory Rate: Normal Appearance: Positive for: Well-Appearing, Non-Toxic, Comfortable Pain Distress: None Mental Status: Positive for: Alert and Oriented X 3 - Systems Exam Head: Present: Atraumatic, Normocephalic Pupils: Present: PERRL Conjunctiva: Present: Normal Mouth: Present: Moist Mucous Membranes Pharnyx: Present: Normal Neck: Present: Normal Range of Motion Respiratory/Chest: Present: Clear to Auscultation, Good Air Exchange. No: Accessory Muscle Use Cardiovascular: Present: Regular Rate and Rhythm, Normal S1, S2. No: Murmurs Abdomen: Present: Normal Bowel Sounds, Other (twitching sensation on diaphragm) . No: Tenderness, Distention, Peritoneal Signs Back: Present: Normal Inspection Upper Extremity: Present: Normal Inspection. No: Cyanosis, Edema Lower Extremity: Present: Normal Inspection. No: Edema Neurological: Present: GCS=15, CN II-XII Intact, Speech Normal Skin: Present: Warm, Dry, Normal Color, Other (scar on left upper chest). No: Rashes Psychiatric: Present: Alert, Oriented x 3, Normal Insight, Normal Concentration Medical Decision Making ED Course and Treatment: 01/25/17 21:58 Impression: 41 year old male with twitching/spasm sensation on diaphragm. Plan: -- EKG -- Chest X-ray -- Labs -- Reassess and disposition Progress Notes: EKG: Ordered, reviewed, and independently interpreted the EKG. Rate : 83 BPM Rhythm : electronic ventricular pacemaker Interpretation : Left Bundle Branch Block pattern. No ST/T changes compared to previous EKG. Comparison : 12/03/2015 01/26/17 23:00 Spoke with patient's correctional sergeant, Dr. Carmelo Casillas, who recommended having the [facility] local rep come in and turn off the LV lead. 01/26/17 00:20 Spoke with local rep, Jeb, who said he will try to get someone to come in. 01/26/17 01:20 Local rep Jeb was able to comes and turn off the LV lead, and the patient's twitching has fully resolved and feels much better - labs are unremarkable; he is ok for d/c to f/u Dr. Casillas tomorrow in his office as instructed by Dr. Casillas. - Lab Interpretations Lab Results: 01/25/17 22:21 01/25/17 22:21 Lab Results 01/25/17 22:21: Sodium 143, Potassium 4.0, Chloride 107, Carbon Dioxide 24, Anion Gap 16, BUN 20, Creatinine 0.9, Est GFR ( Amer) > 60, Est GFR (Non- Af Amer) > 60, Random Glucose 122 H, Calcium 9.6, Magnesium 2.1, Total Bilirubin 0.4, AST 32, ALT 34, Alkaline Phosphatase 89, Lactate Dehydrogenase 650, Total Creatine Kinase 166, Troponin I < 0.01, NT-Pro-B Natriuret Pep 36.3, Total Protein 6.7, Albumin 4.3, Globulin 2.3, Albumin/Globulin Ratio 1.9 H, Lipase 75 01/25/17 22:21: PT 10.3, INR 0.95, APTT 25.7 01/25/17 22:21: WBC 5.6, RBC 4.70, Hgb 14.8, Hct 43.5, MCV 92.6, MCH 31.5, MCHC 34.0, RDW 13.5, Plt Count 186, MPV 10.1, Gran % 53.5, Lymph % (Auto) 36.2 H, Marshall % (Auto) 7.3 H, Eos % (Auto) 2.8, Baso % (Auto) 0.2, Gran # 3.02, Lymph # 2.0, Marshall # 0.4, Eos # 0.2, Baso # 0.01, Corrected WBC (Man) Cancelled, Neutrophils % (Manual) Cancelled, Band Neutrophils % Cancelled, Lymphocytes % ( Manual) Cancelled, Atypical Lymphs % Cancelled, Monocytes % (Manual) Cancelled, Eosinophils % (Manual) Cancelled, Basophils % (Manual) Cancelled, Metamyelocytes % Cancelled, Myelocytes % Cancelled, Promyelocytes % Cancelled, Nucleated RBC % Cancelled, Hypersegmented Polys Cancelled, Immature Lymphocytes Cancelled, Blast Cells Cancelled, Smudge Cells Cancelled, Toxic Granulation Cancelled, Dohle Bodies Cancelled, Adi Rods Cancelled, Platelet Evaluation Cancelled, Plt Clumps, EDTA Cancelled, Large Platelets Cancelled, Giant Platelets Cancelled, Polychromasia Cancelled, Hypochromasia Cancelled, Hyperchromasia Cancelled, Poikilocytosis (manual Cancelled, Basophilic Stippling Cancelled, Anisocytosis (manual) Cancelled, Microcytosis (manual) Cancelled, Macrocytosis (manual) Cancelled, Spherocytes Cancelled, Sickle Cells Cancelled, Target Cells Cancelled, Tear Drop Cells Cancelled, Ovalocytes Cancelled, Stomatocytes Cancelled, Helmet Cells Cancelled, [place] Rings Cancelled , [place] Cells Cancelled, Acanthocytes (Spur) Cancelled, Rouleaux Cancelled, Schistocytes Cancelled I have reviewed the lab results: Yes - RAD Interpretation Radiology Orders: 01/25/17 22:15 CHEST PORTABLE [RAD] Stat - EKG Interpretation Interpreted by ED Physician: Yes Type: 12 lead EKG - Scribe Statement The provider has reviewed the documentation as recorded by the Scribe 01/25/2017 Colette Toribio Provider Scribe Attestation: All medical record entries made by the Scribe were at my direction and personally dictated by me. I have reviewed the chart and agree that the record accurately reflects my personal performance of the history, physical exam, medical decision making, and the department course for this patient. I have also personally directed, reviewed, and agree with the discharge instructions and disposition. Disposition/Present on Arrival - Present on Arrival Any Indicators Present on Arrival: No History of DVT/PE: No History of Uncontrolled Diabetes: No Urinary Catheter: No History of Decub. Ulcer: No History Surgical Site Infection Following: None - Disposition Have Diagnosis and Disposition been Completed?: Yes Diagnosis: Diaphragmatic stimulation by pacemaker Disposition: HOME/ ROUTINE Disposition Time: 01:20 Patient Plan: Discharge Condition: GOOD Additional Instructions: Follow up with Dr. Casillas tomorrow in his office. Return to the emergency department if any new concerning symptoms. Referrals: Avtar Porter APN [Primary Care Provider] - Follow up with primary Forms: [employer] (Portuguese)
[2017-01-25 22:30] LABS: BASO # 0.01 K/mm3 (0.0-2.0); BASO % 0.2 % (0.0-3.0); EOS # 0.2 (0.0-0.7); EOS % 2.8 % (1.5-5.0); GRAN # 3.02 (1.4-6.5); GRAN % 53.5 % (50.0-68.0); HEMATOCRIT 43.5 % (42.0-52.0); LYMPH % 36.2 % (22.0-35.0); MEAN CELL VOLUME 92.6 fl (80.0-105.0); MEAN CORPUSCULAR HEMOGLOBIN 31.5 pg (25.0-35.0); MEAN PLATELET VOLUME 10.1 fl (7.0-11.0); MONO # 0.4 (0.1-0.6); MONO % 7.3 % (1.0-6.0); RED CELL DISTRIBUTION WIDTH 13.5 % (11.5-14.5); WHITE BLOOD COUNT 5.6 10^3/ul (4.5-11.0)
[2017-01-25 22:38] LABS: ALB/GLOB RATIO 1.9 (1.1-1.8); ALKALINE PHOSPHATASE 89 U/L (38-133); ALT/SGPT 34 U/L (7-56); AST/SGOT 32 U/L (15-59); BILIRUBIN,TOTAL 0.4 mg/dL (0.2-1.3); BLOOD UREA NITROGEN 20 mg/dL (7-21); CALCIUM 9.6 mg/dL (8.4-10.5); CARBON DIOXIDE 24 mmol/L (21-33); CHLORIDE 107 mmol/L (95-110); GFR AFRICAN-AMERICAN > 60; GLUCOSE,RANDOM 122 mg/dL (70-110); LIPASE 75 U/L (23-300); MAGNESIUM 2.1 mg/dL (1.7-2.2); SODIUM 143 mmol/L (132-148); TOTAL PROTEIN 6.7 g/dL (5.8-8.3)
[2017-01-25 22:44] LABS: INR 0.95 (0.93-1.08); PARTIAL THROMBOPLASTIN TIME 25.7 Seconds (23.7-30.8)
[2017-01-25 22:52] LABS: TROPONIN I < 0.01 ng/mL
[2017-01-26 01:35] VITALS: BP 132/80; PULSE 82; RESP 16; O2SAT 99
--- NOTE | 2017-01-26 09:28 | RAD ---
HISTORY: cp COMPARISON: 12/02/2016 FINDINGS: LUNGS: No active pulmonary disease. PLEURA: No significant pleural effusion identified, no pneumothorax apparent. CARDIOVASCULAR: Pacemaker due AICD device and leads appear similar OSSEOUS STRUCTURES: No significant abnormalities. VISUALIZED UPPER ABDOMEN: Normal. OTHER FINDINGS: None. IMPRESSION: No interval pathology appreciated
--- NOTE | 2017-01-26 19:30 | CARD ---
APPROVED REPORT EKG Measurement Heart [id number] <Conclusion> Atrial sensed, ventricular paced rhythm
== END 2017-01-26 01:35 | disposition home or self-care (01) ==
LOC: ED 21:47
DX: T82.897A Other specified complication of cardiac prosthetic devices, implants and grafts, initial encounter (principal); Y83.8 Other surgical procedures as the cause of abnormal reaction of the patient, or of later complication, without mention of misadventure at the time of the procedure; I42.9 Cardiomyopathy, unspecified

== ENCOUNTER 2017-02-21 14:05 | Emergency (ER) | payer MEDICAID ==
[2017-02-21 14:06] VITALS: BMI 25.8
[2017-02-21 14:09] VITALS: RESP 18; O2SAT 98
--- NOTE | 2017-02-21 14:51 | ED PDOC ---
Arrival/HPI - General Chief Complaint: ENT Problem Time Seen by Provider: 02/21/17 14:41 Historian: Patient - History of Present Illness Narrative History of Present Illness (Text): 02/21/17 14:41 This 41 yo male presents to this ED c/o sore throat and cough x 3 days. Patient is requesting Decadron shot, since this medication helps him in the past. Patient denies fever, sob, cp, abdominal pain, MCWILLIAMS, or dizziness. Time/Duration: Other (3 days) Context: Home Past Medical History - Provider Review Nursing Documentation Reviewed: Yes - Infectious Disease Hx of Infectious Diseases: None - Tetanus Immunization Tetanus Immunization: Up to Date - Past Medical History Past Medical History: No Previous - Cardiac Hx Cardiac Disorders: Yes Hx Pacemaker: Yes (Pt states he has a defibrillator.) Other/Comment: Unknown cardiac problem-patient does not know - Pulmonary Hx Respiratory Disorders: No - Neurological Hx Neurological Disorder: No - HEENT Hx HEENT Disorder: No - Renal Hx Renal Disorder: Yes Hx Kidney Stones: Yes - Endocrine/Metabolic Hx Endocrine Disorders: No - Hematological/Oncological Hx Blood Disorders: No - Integumentary Hx Dermatological Disorder: No - Musculoskeletal/Rheumatological Hx Musculoskeletal Disorders: No - Gastrointestinal Hx Gastrointestinal Disorders: No - Genitourinary/Gynecological Hx Genitourinary Disorders: No - Psychiatric Hx Psychophysiologic Disorder: No Hx Depression: No Hx Substance Use: No - Past Surgical History Past Surgical History: No Previous - Surgical History Other/Comment: Pt reports he had a defibrillator inserted at [facility] - Anesthesia Hx Anesthesia: Yes Hx Anesthesia Reactions: No Hx Malignant Hyperthermia: No - Suicidal Assessment Feels Threatened In Home Enviroment: No Family/Social History - Physician Review Nursing Documentation Reviewed: Yes Family/Social History: Other (non-contributory) Smoking Status: Never Smoked Hx Alcohol Use: No Hx Substance Use: No Hx Substance Use Treatment: No Allergies/Home Meds Allergies/Adverse Reactions: Allergies No Known Allergies Allergy (Verified 12/02/16 12:48) Home Medications: Home Meds Medication Instructions Recorded Confirmed Alprazolam [Xanax] 0.5 mg PO BID 10/02/16 02/21/17 Atorvastatin [Lipitor] 10 mg PO DAILY 10/02/16 02/21/17 Docusate Sodium [Song' 100 mg PO BID 10/02/16 02/21/17 Laxative] Escitalopram [Lexapro] 10 mg PO DAILY 10/02/16 02/21/17 Hydrocortisone [Anusol-Hc] 25 mg DAILY 10/02/16 02/21/17 Lisinopril [Zestril] 20 mg PO DAILY 10/02/16 02/21/17 Metoprolol Succinate 50 mg PO DAILY 10/02/16 02/21/17 Omeprazole 40 mg PO DAILY 10/02/16 02/21/17 buPROPion XL [Wellbutrin XL] 300 mg DAILY 10/02/16 02/21/17 Review of Systems - Review of Systems Constitutional: Normal. absent: Fatigue, Weight Change, Fevers Eyes: Normal ENT: Sore Throat. absent: Rhinorrhea, Epistaxis Respiratory: Cough. absent: SOB, Sputum, Wheezing Cardiovascular: Normal. absent: Chest Pain Gastrointestinal: Normal. absent: Abdominal Pain, Nausea, Vomiting Genitourinary Male: Normal. absent: Dysuria, Frequency, Hematuria Musculoskeletal: Normal Skin: Normal Neurological: Normal. absent: Headache, Dizziness, Focal Weakness, Gait Changes , Speech Changes, Facial Droop Endocrine: Normal Hemo/Lymphatic: Normal Psychiatric: Normal Physical Exam Vital Signs Temp Pulse Resp BP Pulse Ox 02/21/17 15:25 98.5 F 78 18 130/80 98 02/21/17 14:08 98.2 F 77 18 129/85 98 Temperature: Afebrile Blood Pressure: Normal Pulse: Regular Respiratory Rate: Normal Appearance: Positive for: Well-Appearing, Non-Toxic, Comfortable Pain Distress: None Mental Status: Positive for: Alert and Oriented X 3 - Systems Exam Head: Present: Atraumatic, Normocephalic Pupils: Present: PERRL Extroacular Muscles: Present: EOMI Conjunctiva: Present: Normal Mouth: Present: Moist Mucous Membranes Pharnyx: Present: ERYTHEMA. No: EXUDATE, TONSILS ENLARGED, Peritonsilar Swelling, Uvular Deviation Nose (External): Present: Atraumatic Nose (Internal): Present: Normal Inspection Neck: Present: Normal Range of Motion Respiratory/Chest: Present: Clear to Auscultation, Good Air Exchange. No: Respiratory Distress, Accessory Muscle Use, Wheezes, Retracting, Rhonchi Cardiovascular: Present: Regular Rate and Rhythm, Normal S1, S2. No: Murmurs Abdomen: Present: Normal Bowel Sounds. No: Tenderness, Distention, Peritoneal Signs Back: Present: Normal Inspection Upper Extremity: Present: Normal Inspection. No: Cyanosis, Edema Lower Extremity: Present: Normal Inspection. No: Edema Neurological: Present: GCS=15, CN II-XII Intact, Speech Normal Skin: Present: Warm, Dry, Normal Color. No: Rashes Psychiatric: Present: Alert, Oriented x 3, Normal Insight, Normal Concentration Medical Decision Making ED Course and Treatment: 02/21/17 15:36 Re-evaluation. Patient feels better. Discussed results and plan with patient who expresses understanding. All questions answered and there is agreement with the plan to discharge home with instructions. Patient stable for discharge. Return if symptoms persist or worsen. I reviewed risk involve when taking Decadron IM, not only but including AVN, DM , glaucoma, osteoporosis to name a few. He is aware of this risk, bit he still insist in having this medication. Re-evaluation Time: 15:36 Reassessment Condition: Re-examined, Improved - Medication Orders Current Medication Orders: Discontinued Medications Amoxicillin/Clavulanate Potassium (Augmentin 875 Mg-125 Mg Tab) 1 tab PO STAT STA PRN Reason: Protocol Stop: 02/21/17 14:59 Last Admin: 02/21/17 15:04 Dose: 1 tab Dexamethasone (Decadron Inj) 10 mg IM STAT STA Stop: 02/21/17 14:59 Last Admin: 02/21/17 15:04 Dose: 10 mg Disposition/Present on Arrival - Present on Arrival Any Indicators Present on Arrival: No History of DVT/PE: No History of Uncontrolled Diabetes: No Urinary Catheter: No History of Decub. Ulcer: No History Surgical Site Infection Following: None - Disposition Have Diagnosis and Disposition been Completed?: Yes Diagnosis: Pharyngitis, Cough Disposition: HOME/ ROUTINE Disposition Time: 15:38 Patient Plan: Discharge Condition: GOOD Discharge Instructions (ExitCare): Pharyngitis (ED) Additional Instructions: Call private doctor for follow up visit in 1-2 days. Take medication as instructed. Return to emergency if symptoms worsen. change toothbrush on day 4 while taking antibiotic Prescriptions: Amoxicillin/Clavulanate [Augmentin 875 MG-125 MG] 1 tab PO BID #20 tab Referrals: Karen Seth MD [Family Provider] - Follow up with primary Forms: [facility] (Chinese)
[2017-02-21] MEDS ORDERED: Amoxicillin-Clav 875-125 mg Tab PO STA (14:58)
[2017-02-21 15:26] VITALS: BP 130/80; PULSE 78; TEMP 98.5
== END 2017-02-21 15:47 | disposition home or self-care (01) ==
LOC: ED 14:05
DX: J02.9 Acute pharyngitis, unspecified (principal); R05 Cough
CPT/HCPCS: 96372; 99283; J1100

== ENCOUNTER 2017-03-04 12:26 | Inpatient (IN) | payer MEDICAID ==
[2017-03-04 12:27] VITALS: BMI 25.8
--- NOTE | 2017-03-04 12:43 | ED PDOC ---
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 Patient reports that chest pain is midsternal and radiating into his L arm. Reports some associated shortness of breath. Denies fever, chills, nausea/vomiting. Denies anticoagulant or aspirin use PMD: Avtar Porter APN, [facility] Shipping Supervisor: Dr. Carmelo Casillas Judo Instructor: Dr. Eliel Park, [facility] 03/04/17 13:44 Past Medical History - Infectious Disease Hx of Infectious Diseases: None - Tetanus Immunization Tetanus Immunization: Up to Date - Past Medical History Past Medical History: No Previous - Cardiac Hx Cardiac Disorders: Yes Hx Pacemaker: Yes (Pt states he has a defibrillator.) Other/Comment: Unknown cardiac problem-patient does not know - Pulmonary Hx Respiratory Disorders: No - Neurological Hx Neurological Disorder: No - HEENT Hx HEENT Disorder: No - Renal Hx Renal Disorder: Yes Hx Kidney Stones: Yes - Endocrine/Metabolic Hx Endocrine Disorders: No - Hematological/Oncological Hx Blood Disorders: No - Integumentary Hx Dermatological Disorder: No - Musculoskeletal/Rheumatological Hx Musculoskeletal Disorders: No - Gastrointestinal Hx Gastrointestinal Disorders: No - Genitourinary/Gynecological Hx Genitourinary Disorders: No - Psychiatric Hx Psychophysiologic Disorder: No Hx Depression: No Hx Substance Use: No - Past Surgical History Past Surgical History: No Previous - Surgical History Other/Comment: Pt reports he had a defibrillator inserted at [facility] - Anesthesia Hx Anesthesia: Yes Hx Anesthesia Reactions: No Hx Malignant Hyperthermia: No - Suicidal Assessment Feels Threatened In Home Enviroment: No Family/Social History Family/Social History: No Known Family HX Smoking Status: Never Smoked Hx Alcohol Use: No Hx Substance Use: No Hx Substance Use Treatment: No Allergies/Home Meds Allergies/Adverse Reactions: Allergies No Known Allergies Allergy (Verified 12/02/16 12:48) Home Medications: Home Meds Medication Instructions Recorded Confirmed Atorvastatin [Lipitor] 10 mg PO DAILY 10/02/16 03/04/17 Escitalopram [Lexapro] 10 mg PO DAILY 10/02/16 03/04/17 Lisinopril [Zestril] 10 mg PO DAILY 10/02/16 03/04/17 Metoprolol Succinate 50 mg PO DAILY 10/02/16 03/04/17 Omeprazole 40 mg PO DAILY 10/02/16 03/04/17 buPROPion XL [Wellbutrin XL] 300 mg DAILY 10/02/16 03/04/17 Gabapentin [Neurontin] 1 cap PO Q8H 03/04/17 03/04/17 Spironolactone [Aldactone] 1 tab PO DAILY 03/04/17 03/04/17 oxyCODONE [oxyCODONE Immediate 1 tab PO Q6H PRN 03/04/17 03/04/17 Release Tab] traZODone [Desyrel] 1 tab PO HS 03/04/17 03/04/17 Review of Systems - Review of Systems Constitutional: absent: Fatigue, Weight Change, Fevers Respiratory: SOB. absent: Cough, Sputum, Wheezing Cardiovascular: Chest Pain. absent: Palpitations, Edema, Calf Pain, SHINE, Orthopnea, Syncope Gastrointestinal: absent: Abdominal Pain, Constipation, Diarrhea, Nausea, Vomiting Genitourinary Male: absent: Dysuria Musculoskeletal: absent: Arthralgias Skin: absent: Rash Neurological: absent: Headache, Dizziness Physical Exam Vital Signs Temp Pulse Pulse Resp BP BP Pulse Ox 03/04/17 14:29 90 18 135/85 98 03/04/17 13:29 91 H 16 124/83 95 03/04/17 12:49 78 155/135 H 03/04/17 12:31 97.8 F 89 20 143/120 H 97 Temperature: Afebrile Blood Pressure: Hypertensive Pulse: Regular Respiratory Rate: Normal Appearance: Positive for: Well-Appearing, Non-Toxic, Comfortable Pain Distress: None Mental Status: Positive for: Alert and Oriented X 3 - Systems Exam Head: Present: Atraumatic, Normocephalic Pupils: Present: PERRL Extroacular Muscles: Present: EOMI Conjunctiva: Present: Normal Mouth: Present: Moist Mucous Membranes Neck: Present: Normal Range of Motion Respiratory/Chest: Present: Clear to Auscultation, Good Air Exchange. No: Respiratory Distress, Accessory Muscle Use Cardiovascular: Present: Regular Rate and Rhythm, Normal S1, S2, Other (4cm surgical scar on L upper chest, 5cm surgical scar below L breast. No erythema or discharge. well healing). No: Murmurs Abdomen: No: Tenderness, Distention, Rebound Back: Present: Normal Inspection. No: CVA Tenderness Upper Extremity: Present: Normal Inspection. No: Edema Lower Extremity: Present: Normal Inspection. No: Edema Psychiatric: Present: Alert, Oriented x 3 Medical Decision Making ED Course and Treatment: 03/04/17 12:46 EKG shows paced rhythm at 85bpm. Aspirin ordered Report Date : 03/04/2017 13:20:47 Procedure: Chest xray Dictator : Satya Manuel MD IMPRESSION: Linear atelectasis or fibrosis right base with remainder examination appearing otherwise unremarkable including pacemaker/ defibrillator placement which is stable. 03/04/17 13:32 BNP and Trop negative. D-dimer elevated. Will anticoagulate and will get CTA on this admission. Paged Dr. Rush. 03/04/17 13:[address] Be, who accepts patient to his service. Requests Lovenox to be given. States he will decide CT vs. VQ after evaluating patient. Patient resting comfortably and pain free currently. 03/04/17 14:41 03/04/17 14:55 - Lab Interpretations Lab Results: 03/04/17 12:40 03/04/17 12:40 Lab Results 03/04/17 13:10: Blood Type Confirm O POSITIVE 03/04/17 12:40: WBC 10.6 D, RBC 4.85, Hgb 15.5, Hct 44.9, MCV 92.6, MCH 32.0, MCHC 34.5, RDW 13.2, Plt Count 289, MPV 9.1, Gran % 70.0 H, Lymph % (Auto) 21.5 L, [place] % (Auto) 5.6, Eos % (Auto) 2.7, Baso % (Auto) 0.2, Gran # 7.41 H, Lymph # 2.3, [place] # 0.6, Eos # 0.3, Baso # 0.02 03/04/17 12:40: Blood Type O POSITIVE, Antibody Screen Negative, BBK History Checked No verified bt 03/04/17 12:40: Sodium 141, Potassium 4.4, Chloride 101, Carbon Dioxide 29, Anion Gap 15, BUN 14, Creatinine 0.8, Est GFR ( Amer) > 60, Est GFR (Non- Af Amer) > 60, Random Glucose 113 H, Calcium 9.3, Total Bilirubin 0.5, AST 26, ALT 31, Alkaline Phosphatase 86, Lactate Dehydrogenase 542, Total Creatine Kinase 72, Troponin I < 0.01, NT-Pro-B Natriuret Pep 64.2, Total Protein 7.2, Albumin 4.4, Globulin 2.8, Albumin/Globulin Ratio 1.6 03/04/17 12:40: PT 10.8, INR 1.00, APTT 29.6, D-Dimer, Quantitative 3.51 H - RAD Interpretation Radiology Orders: 03/04/17 12:37 CHEST PORTABLE [RAD] Stat - Medication Orders Current Medication Orders: Atorvastatin Calcium (Lipitor) 10 mg PO DAILY MATEO Bupropion HCl (Wellbutrin Xl) 300 mg PO DAILY MATEO Escitalopram Oxalate (Lexapro) 10 mg PO DAILY MATEO Gabapentin (Neurontin) 1 mg PO Q8H MATEO PRN Reason: Protocol Lisinopril (Zestril) 10 mg PO DAILY MATEO Metoprolol Succinate (Toprol Xl) 50 mg PO DAILY MATEO Non-Formulary Medication (Omeprazole [Omeprazole]) 40 mg PO DAILY MATEO Spironolactone (Aldactone) 1 mg PO DAILY MATEO Trazodone HCl (Desyrel) 1 mg PO HS MATEO Discontinued Medications Aspirin (Aspirin Chewable) 324 mg PO STAT STA Stop: 03/04/17 12:38 Last Admin: 03/04/17 12:49 Dose: 324 mg Enoxaparin Sodium (Lovenox) 80 mg SC STAT STA PRN Reason: Protocol Stop: 03/04/17 13:53 Last Admin: 03/04/17 14:31 Dose: 80 mg Subcutaneous Administrations Document 03/04/17 14:31 (Rec: 03/04/17 14:31 MR [id number]) Injection Site MAR Injection Site Right Abdomen Charges for Administration # of Subcutaneous Administrations 1 Disposition/Present on Arrival - Present on Arrival Any Indicators Present on Arrival: No History of DVT/PE: No History of Uncontrolled Diabetes: No Urinary Catheter: No History of Decub. Ulcer: No History Surgical Site Infection Following: None - Disposition Have Diagnosis and Disposition been Completed?: Yes Diagnosis: Chest pain Disposition: HOSPITALIZED Disposition Time: 13:33 Patient Plan: Observation Patient Problems: Current Active Problems Problem Status Onset Chest pain Acute Condition: FAIR
[2017-03-04 13:05] LABS: BASO # 0.02 K/mm3 (0.0-2.0); BASO % 0.2 % (0.0-3.0); EOS # 0.3 (0.0-0.7); EOS % 2.7 % (1.5-5.0); GRAN # 7.41 (1.4-6.5); HEMATOCRIT 44.9 % (42.0-52.0); LYMPH # 2.3 (1.2-3.4); LYMPH % 21.5 % (22.0-35.0); MEAN CELL VOLUME 92.6 fl (80.0-105.0); MEAN CORPUSCULAR HGB CONC 34.5 g/dl (31.0-37.0); MEAN PLATELET VOLUME 9.1 fl (7.0-11.0); MONO # 0.6 (0.1-0.6); MONO % 5.6 % (1.0-6.0); RED CELL DISTRIBUTION WIDTH 13.2 % (11.5-14.5); WHITE BLOOD COUNT 10.6 10^3/ul (4.5-11.0)
[2017-03-04 13:07] LABS: ALB/GLOB RATIO 1.6 (1.1-1.8); ALKALINE PHOSPHATASE 86 U/L (38-126); ALT/SGPT 31 U/L (7-56); AST/SGOT 26 U/L (17-59); BILIRUBIN,TOTAL 0.5 mg/dL (0.2-1.3); BLOOD UREA NITROGEN 14 mg/dL (7-21); CALCIUM 9.3 mg/dL (8.4-10.5); CARBON DIOXIDE 29 mmol/L (21-33); CHLORIDE 101 mmol/L (98-107); GFR AFRICAN-AMERICAN > 60; GLUCOSE,RANDOM 113 mg/dL (70-110); POTASSIUM 4.4 mmol/L (3.6-5.0); SODIUM 141 mmol/L (132-148); TOTAL PROTEIN 7.2 g/dL (5.8-8.3)
[2017-03-04 13:18] LABS: PARTIAL THROMBOPLASTIN TIME 29.6 Seconds (23.7-30.8)
--- NOTE | 2017-03-04 13:22 | RAD ---
HISTORY: ... COMPARISON: Portable chest 01/25/2017. FINDINGS: LUNGS: Interval linear atelectasis is appreciate the inferior right lung zone with a left chest clear. PLEURA: No significant pleural effusion identified, no pneumothorax apparent. CARDIOVASCULAR: Cardiac silhouette remains normal in size with multilead delete implanted defibrillator/ pacemaker again noted. No pulmonary vascular derangement or cardiomegaly. OSSEOUS STRUCTURES: No significant abnormalities. VISUALIZED UPPER ABDOMEN: Normal. OTHER FINDINGS: None. IMPRESSION: Linear atelectasis or fibrosis right base with remainder examination appearing otherwise unremarkable including pacemaker/ defibrillator placement which is stable.
[2017-03-04 13:23] LABS: TROPONIN I < 0.01 ng/mL
[2017-03-04 13:28] LABS: D DIMER 3.51 mg/L FEU (0-0.50)
[2017-03-04] MEDS ORDERED: Enoxaparin 80 mg Syringe SC STA (13:52)
[2017-03-04] MEDS ORDERED: Pantoprazole 40 mg EC Tab PO SCH (15:00)
--- NOTE | 2017-03-04 15:08 | CP.PCM.HP ---
History of Present Illness - History of Present Illness History of Present Illness: CC: Chest pain 41 M with 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 Pt states that the pain started yesterday and has gotten progressively worse. Pt states that he took Percocet for the pain that he received from his recent surgery for the pain. The pain is constant , radiating to his neck and L arm and is 10/10 in severity. Denies any n/v/ diaphoresis. Note the pt had his pacemaker/defib placed in September/2016 for a "weak heart." The wiring was readjusted a few weeks later and was readjusted once again last week in [facility]. 12 Point ROS performed and negative other than reported above. PMH: Viral myocarditis, HTN, Depression PSH: as above Med: refer to MAR ALL: NKA SH: former smoker - quit last year smoked for 15 years prior. Denies drinking and drugs FH: denies Present on Admission - Present on Admission Any Indicators Present on Admission: No Review of Systems - Review of Systems All systems: reviewed and no additional remarkable complaints except Past Patient History - Infectious Disease Hx of Infectious Diseases: None - Tetanus Immunizations Tetanus Immunization: Up to Date - Past Social History Smoking Status: Never Smoked - CARDIAC Hx Cardiac Disorders: Yes Hx Pacemaker: Yes (Pt states he has a defibrillator.) Other/Comment: Unknown cardiac problem-patient does not know - PULMONARY Hx Respiratory Disorders: No - NEUROLOGICAL Hx Neurological Disorder: No - HEENT Hx HEENT Problems: No - RENAL Hx Chronic Kidney Disease: Yes Hx Kidney Stones: Yes - ENDOCRINE/METABOLIC Hx Endocrine Disorders: No - HEMATOLOGICAL/ONCOLOGICAL Hx Blood Disorders: No - INTEGUMENTARY Hx Dermatological Problems: No - MUSCULOSKELETAL/RHEUMATOLOGICAL Hx Musculoskeletal Disorders: No - GASTROINTESTINAL Hx Gastrointestinal Disorders: No - GENITOURINARY/GYNECOLOGICAL Hx Genitourinary Disorders: No - PSYCHIATRIC Hx Psychophysiologic Disorder: No Hx Depression: No Hx Substance Use: No - SURGICAL HISTORY Other/Comment: Pt reports he had a defibrillator inserted at [facility] - ANESTHESIA Hx Anesthesia: Yes Hx Anesthesia Reactions: No Hx Malignant Hyperthermia: No Meds Allergies/Adverse Reactions: Allergies Allergy/AdvReac Type Severity Reaction Status Date / Time No Known Allergies Allergy Verified 12/02/16 12:48 Physical Exam - Constitutional Appears: No Acute Distress - Head Exam Head Exam: ATRAUMATIC, NORMAL INSPECTION, NORMOCEPHALIC - Eye Exam Eye Exam: EOMI, Normal appearance, PERRL Pupil Exam: NORMAL ACCOMODATION, PERRL - ENT Exam ENT Exam: Mucous Membranes Moist, Normal Exam - Neck Exam Neck exam: Positive for: Normal Inspection - Respiratory Exam Respiratory Exam: Clear to Auscultation Bilateral, NORMAL BREATHING PATTERN. absent: Rales, Rhonchi, Wheezes - Cardiovascular Exam Cardiovascular Exam: REGULAR RHYTHM, RRR, +S1, +S2 Additional comments: L anterior chest wall incision from prior surgery - GI/Abdominal Exam GI & Abdominal Exam: Normal Bowel Sounds, Soft. absent: Tenderness - Extremities Exam Extremities exam: Negative for: calf tenderness, pedal edema - Back Exam Back exam: absent: tenderness - Neurological Exam Neurological exam: Alert, CN II-XII Intact, Oriented x3 - Psychiatric Exam Psychiatric exam: Normal Affect, Normal Mood - Skin Skin Exam: Dry, Normal Color, Warm Results - Vital Signs Recent Vital Signs: Last Vital Signs Temp 97.8 F 03/04/17 12:31 Pulse 90 03/04/17 14:29 Resp 18 03/04/17 14:29 BP 135/85 03/04/17 14:29 Pulse Ox 98 03/04/17 14:29 - Labs Result Diagrams: 03/04/17 12:40 03/04/17 12:40 Assessment & Plan - Assessment and Plan (Free Text) Assessment: 41M with pmh of recent defib/pacemaker placement and readjustment 2/2 viral myocarditis presents with chest pain. 1. Chest Pain likely 2/2 recent surgery vs ACS - EKG reviewed and NSR with no acute ST or T wave changes - Tropsx 1 negative - f/u serial trops - Cardiology consulted for recs - CXR reviewed - Linear atelectasis or fibrosis right base with remainder examination appearing otherwise unremarkable including pacemaker/ defibrillator placement which is stable - F/u echo - Cont home Lipitor, Aldactone, Lisinopril, and Metoprolol 2. Elevated D-Dimer r/o PE - CT scan with contrast currently unavail due to malfunctioning - F/u V/Q scan - Lovenox 80mg SC given 3. Depression - Cont home meds 4. GI/DVT ppx - Protonix and Lovenox Case and plan was reviewed and discussed with Dr Gómez.
[2017-03-04 15:09] LABS: MAGNESIUM 2.1 mg/dL (1.7-2.2); PHOSPHOROUS 3.9 mg/dL (2.5-4.5)
--- NOTE | 2017-03-04 17:24 | NM ---
COMPARISON: Comparison is made to previous same-day chest x-ray. TECHNIQUE: Thirty mCi technetium 99-m technetium DTPA serosal 3.2 mCI technetium 99-m MAA administered intravenously. FINDINGS: VENTILATION COMPONENT: Heterogeneous ventilation noted bilaterally PERFUSION COMPONENT: No evidence of segmental or subsegmental mismatching perfusion defect. IMPRESSION: Lowprobability ventilation perfusion scan for pulmonary embolism.
[2017-03-04] MEDS: Morphine 2 mg/ml ISec IVP PRN (18:24)
[2017-03-04] MEDS ORDERED: Pneumococcal 23-Valent Vaccine IM ONE (20:08)
[2017-03-05] MEDS: Morphine 2 mg/ml ISec IVP PRN (01:41)
[2017-03-05 08:59] LABS: BASO # 0.01 K/mm3 (0.0-2.0); BASO % 0.1 % (0.0-3.0); EOS # 0.3 (0.0-0.7); EOS % 3.4 % (1.5-5.0); GRAN # 5.02 (1.4-6.5); GRAN % 62.9 % (50.0-68.0); HEMATOCRIT 42.2 % (42.0-52.0); LYMPH # 1.9 (1.2-3.4); LYMPH % 24.1 % (22.0-35.0); MEAN CORPUSCULAR HEMOGLOBIN 31.1 pg (25.0-35.0); MEAN CORPUSCULAR HGB CONC 33.4 g/dl (31.0-37.0); MONO # 0.8 (0.1-0.6); MONO % 9.5 % (1.0-6.0); RED CELL DISTRIBUTION WIDTH 13.3 % (11.5-14.5)
--- NOTE | 2017-03-05 09:01 | CARD ---
APPROVED REPORT EKG Measurement Heart [id number] CA [id number] <Conclusion> Electronic ventricular pacemaker: 100% V. Paced, A. Sensed. No change
[2017-03-05 09:15] LABS: ALB/GLOB RATIO 1.5 (1.1-1.8); ALKALINE PHOSPHATASE 76 U/L (38-126); ALT/SGPT 31 U/L (7-56); AST/SGOT 21 U/L (17-59); BILIRUBIN,TOTAL 0.6 mg/dL (0.2-1.3); BLOOD UREA NITROGEN 22 mg/dL (7-21); CALCIUM 9.1 mg/dL (8.4-10.5); CARBON DIOXIDE 29 mmol/L (21-33); CHLORIDE 102 mmol/L (98-107); GFR AFRICAN-AMERICAN > 60; GLUCOSE,RANDOM 111 mg/dL (70-110); POTASSIUM 4.3 mmol/L (3.6-5.0); SODIUM 141 mmol/L (132-148); TOTAL PROTEIN 6.7 g/dL (5.8-8.3)
[2017-03-05] MEDS: Metoprolol Succinate 50 mg XL Tab PO SCH (10:15)
[2017-03-05] MEDS: buPROPion 300 mg/24 Hours XL Tab PO SCH (10:27)
[2017-03-05] MEDS: Pantoprazole 40 mg EC Tab PO SCH (10:27)
--- NOTE | 2017-03-05 14:20 | CP.PCM.DIS ---
Provider - Provider Date of Admission: 03/04/17 13:53 Attending physician: Clarita Be MD Primary care physician: NO PRIMARY CARE PROVIDER Consults: Cardiology Time Spent in preparation of Discharge (in minutes): 40 Hospital Course - Lab Results Lab Results: Most Recent Lab Values WBC 8.0 10^3/ul (4.5-11.0) D 03/05/17 08:40 RBC 4.54 10^6/uL (3.5-6.1) 03/05/17 08:40 Hgb 14.1 g/dL (14.0-18.0) 03/05/17 08:40 Hct 42.2 % (42.0-52.0) 03/05/17 08:40 MCV 93.0 fl (80.0-105.0) 03/05/17 08:40 MCH 31.1 pg (25.0-35.0) 03/05/17 08:40 MCHC 33.4 g/dl (31.0-37.0) 03/05/17 08:40 RDW 13.3 % (11.5-14.5) 03/05/17 08:40 Plt Count 261 10^3/uL (120.0-450.0) 03/05/17 08:40 MPV 9.0 fl (7.0-11.0) 03/05/17 08:40 Gran % 62.9 % (50.0-68.0) 03/05/17 08:40 Lymph % (Auto) 24.1 % (22.0-35.0) 03/05/17 08:40 [place] % (Auto) 9.5 % (1.0-6.0) H 03/05/17 08:40 Eos % (Auto) 3.4 % (1.5-5.0) 03/05/17 08:40 Baso % (Auto) 0.1 % (0.0-3.0) 03/05/17 08:40 Gran # 5.02 (1.4-6.5) 03/05/17 08:40 Lymph # 1.9 (1.2-3.4) 03/05/17 08:40 [place] # 0.8 (0.1-0.6) H 03/05/17 08:40 Eos # 0.3 (0.0-0.7) 03/05/17 08:40 Baso # 0.01 K/mm3 (0.0-2.0) 03/05/17 08:40 PT 10.8 Seconds (9.9-11.8) 03/04/17 12:40 INR 1.00 (0.93-1.08) 03/04/17 12:40 APTT 29.6 Seconds (23.7-30.8) 03/04/17 12:40 D-Dimer, Quantitative 3.51 mg/L FEU (0-0.50) H 03/04/17 12:40 Sodium 141 mmol/L (132-148) 03/05/17 08:40 Potassium 4.3 mmol/L (3.6-5.0) 03/05/17 08:40 Chloride 102 mmol/L (98-107) 03/05/17 08:40 Carbon Dioxide 29 mmol/L (21-33) 03/05/17 08:40 Anion Gap 14 (10-20) 03/05/17 08:40 BUN 22 mg/dL (7-21) H 03/05/17 08:40 Creatinine 0.9 mg/dL (0.5-1.4) 03/05/17 08:40 Est GFR ( Amer) > 60 03/05/17 08:40 Est GFR (Non-Af Amer) > 60 03/05/17 08:40 Random Glucose 111 mg/dL (70-110) H 03/05/17 08:40 Hemoglobin A1c 6.0 % (4.2-6.5) 03/04/17 12:40 Calcium 9.1 mg/dL (8.4-10.5) 03/05/17 08:40 Phosphorus 3.9 mg/dL (2.5-4.5) 03/04/17 12:40 Magnesium 2.1 mg/dL (1.7-2.2) 03/04/17 12:40 Total Bilirubin 0.6 mg/dL (0.2-1.3) 03/05/17 08:40 AST 21 U/L (17-59) 03/05/17 08:40 ALT 31 U/L (7-56) 03/05/17 08:40 Alkaline Phosphatase 76 U/L (38-126) 03/05/17 08:40 Lactate Dehydrogenase 542 U/L (333-699) 03/04/17 12:40 Total Creatine Kinase 72 U/L (35-230) 03/04/17 12:40 Troponin I < 0.01 ng/mL 03/05/17 01:40 NT-Pro-B Natriuret Pep 64.2 pg/mL (0-450) 03/04/17 12:40 Total Protein 6.7 g/dL (5.8-8.3) 03/05/17 08:40 Albumin 4.0 g/dL (3.0-4.8) 03/05/17 08:40 Globulin 2.7 gm/dL 03/05/17 08:40 Albumin/Globulin Ratio 1.5 (1.1-1.8) 03/05/17 08:40 Triglycerides 106 mg/dL (35-160) 03/04/17 12:40 Cholesterol 145 mg/dL (130-200) 03/04/17 12:40 LDL Cholesterol Direct 99 mg/dL (0-129) 03/04/17 12:40 HDL Cholesterol 34 mg/dL (29-60) 03/04/17 12:40 Procalcitonin 0.09 NG/ML (0.19-0.49) L 03/05/17 08:40 TSH 3rd Generation 1.25 mIU/mL (0.46-4.68) 03/04/17 12:40 Urine Opiates Screen Positive (NEGATIVE) H 03/05/17 05:56 Urine Methadone Screen Negative (NEGATIVE) 03/05/17 05:56 Ur Barbiturates Screen Negative (NEGATIVE) 03/05/17 05:56 Ur Phencyclidine Scrn Negative (NEGATIVE) 03/05/17 05:56 Ur Amphetamines Screen Negative (NEGATIVE) 03/05/17 05:56 U Benzodiazepines Scrn Negative (NEGATIVE) 03/05/17 05:56 U Oth Cocaine Metabols Negative (NEGATIVE) 03/05/17 05:56 U Cannabinoids Screen Negative (NEGATIVE) 03/05/17 05:56 Blood Type O POSITIVE 03/04/17 12:40 Blood Type Confirm O POSITIVE 03/04/17 13:10 Antibody Screen Negative 03/04/17 12:40 BBK History Checked No verified bt 03/04/17 12:40 - Hospital Course Hospital Course: 41 M with 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 In the ED EKG was done and did not show any acute ST or T wave abnormalities. Basic lab work was done. Troponin x 1 was negative. CXR was done and showed linear atelectasis or fibrosis in the R base. D- dimer was elevated and VQ scan was done which showed low probability. Cardiology was consulted and pt was sent to telemetry for close observation. Serial trops ordered and was negative. Echo was done. Today patients pain mostly resolved. He did have 1 episode of fever of 101.5 but since than he has been afebrile. No Leukocytosis. Cardiology recommended continuing current management and okay to d/c with close follow up with his hose tester and Dr Casillas. No other complaints at this time. Denies any f/c, n/v, cp, sob, abd pain, n/v/d, urinary changes. Discharge Exam - Head Exam Head Exam: ATRAUMATIC, NORMAL INSPECTION, NORMOCEPHALIC - Eye Exam Eye Exam: EOMI, PERRL - ENT Exam ENT Exam: Mucous Membranes Moist - Respiratory Exam Respiratory Exam: Clear to PA & Lateral. absent: Rales, Rhonchi, Wheezes - Cardiovascular Exam Cardiovascular Exam: REGULAR RHYTHM, RRR, +S1, +S2 - GI/Abdominal Exam GI & Abdominal Exam: Normal Bowel Sounds, Soft. absent: Tenderness - Neurological Exam Neurological exam: Alert, Normal Gait, Oriented x3 - Psychiatric Exam Psychiatric exam: Normal Affect, Normal Mood - Skin Skin Exam: Dry, Intact, Normal Color, Warm Discharge Plan - Follow Up Plan Condition: IMPROVED Disposition: HOME/ ROUTINE Instructions: Chest Pain (DC), Chest Pain (GEN) Additional Instructions: Follow up with your PMD with in 3-5 days. If your symptoms recur come back to the closest ED. Follow up with your hose tester and Dr Casillas within 1 week. Referrals: PCP,NO [Primary Care Provider] -
[2017-03-05 20:38] LABS: PH,URINE 6.5 (4.7-8.0); URINE BILIRUBIN NEGATIVE (NEGATIVE); URINE BLOOD NEGATIVE (NEGATIVE); URINE GLUCOSE (UA) NEGATIVE (NEGATIVE); URINE KETONE NEGATIVE (NEGATIVE); URINE LEUKOCYTE ESTERASE NEGATIVE Leu/uL (NEGATIVE); URINE PROTEIN NEGATIVE mg/dL (<30 mg/dL)
[2017-03-05 20:39] LABS: URINE APPEARANCE CLEAR (CLEAR); URINE COLOR YELLOW (YELLOW)
--- NOTE | 2017-03-05 21:22 | CON ---
DATE: 03/05/2017 REASON FOR CONSULTATION: Chest pain, cardiac evaluation, history of recent defibrillator placed, cardiomyopathy ejection 20% non-ischemic. BRIEF CLINICAL HISTORY: This is a 41-year-old male with history of possible viral myocarditis with ejection fracture 20%, recently defibrillator revision done by Dr. Casillas, came in with a complaint of chest pain. Past history significant for non-ischemic cardiomyopathy, status post cardiac catheterization in September in [place] from the right radial, was found to be negative. Then, Dr. Casillas put defibrillator in 09/2016. A month later, lead migrated, revision done and then recently possibly the lead further migrated, is done by the thoracic surgeon with splitting on the left pectoral region a week ago. Came in with complaint of chest pain. PAST MEDICAL HISTORY: Significant for myocarditis, hypertension, and depression. FAMILY HISTORY: Noncontributory. SOCIAL HISTORY: Former smoker quit many years ago. Denies any history of alcohol. Denies any history of alcohol abuse. CURRENT MEDICATIONS: The patient at home was taking trazodone, oxycodone, spironolactone, Aldactone, metoprolol, lisinopril, Neurontin, Lexapro, and atorvastatin. ALLERGIES: NO KNOWN DRUG ALLERGIES. REVIEW OF SYSTEMS: As per HPI. PHYSICAL EXAMINATION: VITAL SIGNS: Temperature afebrile, heart rate 90, blood pressure 104/65. HEENT: PERRLA. Extraocular muscle is intact. NECK: Supple. No carotid bruits. No thyromegaly. CHEST: Clear to auscultation. Fresh scar noted in the left pectoral region for ____ as well as under the left breast line noted under the scar where the patient had lead revision done from the surgeon by splitting the rib. Left side of the chest, the breast is a little bit swollen and tender. HEART: S1 and S2 regular. ABDOMEN: Soft. EXTREMITIES: Clubbing and cyanosis negative. LABORATORY DATA: Blood work as follows: WBC 8, hemoglobin 14. hematocrit of 42.2, platelet count 261. Chemistry showed sodium 141, potassium 4.3, chloride 102, carbon dioxide 29, anion gap of 14, BUN 20 and creatinine 0.9. Troponin is 0.01 and TSH 1.25. EKG showed normal sinus incomplete bundle. Telemetry shows V-paced rhythm. ASSESSMENT: A 41-year-old male with possible non-ischemic cardiomyopathy status post defibrillator placed in 09/2016, status post cardiac catheterization prior to that there was normal coronaries, then lead migrated and the patient had revision done in 10/2016, and then most recently the patient had leads revision done at [facility] two weeks ago by the surgeon under the left breast. Postoperatively, the pain is most likely musculoskeletal. So far troponin is negative and cardiac catheterization was negative. RECOMMENDATION: Rule out pericarditis with echo, adequate analgesia, and if echo is negative the patient can be discharged and follow up with Dr. Casillas. Thank you, ____ for providing us the opportunity in taking care of the patient, Wilfredo mAos. Isamar West MD
[2017-03-06 01:10] VITALS: RESP 18
[2017-03-06] MEDS: Morphine 2 mg/ml ISec IVP PRN ×3 (06:24→15:54)
[2017-03-06 06:56] VITALS: O2SAT 98
[2017-03-06 07:41] LABS: ALB/GLOB RATIO 1.5 (1.1-1.8); ALKALINE PHOSPHATASE 73 U/L (38-126); ALT/SGPT 21 U/L (7-56); AST/SGOT 28 U/L (17-59); BILIRUBIN,TOTAL 0.4 mg/dL (0.2-1.3); BLOOD UREA NITROGEN 16 mg/dL (7-21); CALCIUM 9.3 mg/dL (8.4-10.5); CARBON DIOXIDE 28 mmol/L (21-33); CHLORIDE 105 mmol/L (98-107); GFR AFRICAN-AMERICAN > 60; GLUCOSE,RANDOM 97 mg/dL (70-110); POTASSIUM 4.4 mmol/L (3.6-5.0); SODIUM 142 mmol/L (132-148); TOTAL PROTEIN 6.5 g/dL (5.8-8.3)
--- NOTE | 2017-03-06 07:52 | CARD ---
APPROVED REPORT EXAM: Two-dimensional and M-mode echocardiogram with Doppler and color Doppler. Other Information Quality : FairRhythm : INDICATION Chest Pain 2D DIMENSIONS Left Atrium (2D)3.4 (1.6-4.0cm)IVSd1.1 (0.7-1.1cm) LVDd4.8 (3.9-5.9cm)PWd1.1 (0.7-1.1cm) LVDs4.3 (2.5-4.0cm)FS (%) 12.0 % LVEF (%)26.0 (>50%) M-Mode DIMENSIONS Aortic Root2.80 (2.2-3.7cm)Aortic Cusp Exc.1.90 (1.5-2.0cm) Aortic Valve AoV Peak Ymylmrmc998.0cm/s Mitral Valve MV E Zcbppjfd53.0cm/sMV A Luofexkt84.5cm/sE/A ratio1.2 TDI E/Lateral E'0.0E/Medial E'0.0 Tricuspid Valve TR Peak Kxorhrll690xf/sRAP [id number] Peak Gr.22mmHg [id number] LEFT VENTRICLE The left ventricle is normal size. There is normal left ventricular wall thickness. Left ventricle systolic function is moderately to severely impaired. The Ejection Fraction is 25-30%. The anterior, septal and apical segments are akinetic to dyskinetic c/w CA RIGHT VENTRICLE The right ventricle is normal size. ATRIA The left atrium size is normal. The right atrium is not well visualized. AORTIC VALVE The aortic valve is normal in structure. MITRAL VALVE The mitral valve is normal in structure. Mitral regurgitation is trace to mild. TRICUSPID VALVE The tricuspid valve is normal in structure. There is mild tricuspid regurgitation. PULMONIC VALVE The pulmonary valve is normal in structure. There is trace pulmonic valvular regurgitation. GREAT VESSELS The aortic root is normal in size. PERICARDIAL EFFUSION There is no pericardial effusion. <Conclusion> The left ventricle is normal size. There is normal left ventricular wall thickness. Left ventricle systolic function is moderately to severely impaired. The Ejection Fraction is 25-30%. The anterior, septal and apical segments are akinetic to dyskinetic c/w CA Mitral regurgitation is trace to mild. There is mild tricuspid regurgitation.
[2017-03-06 07:54] LABS: BASO # 0.01 K/mm3 (0.0-2.0); BASO % 0.1 % (0.0-3.0); EOS # 0.3 (0.0-0.7); GRAN # 4.98 (1.4-6.5); GRAN % 68.6 % (50.0-68.0); HEMATOCRIT 41.8 % (42.0-52.0); LYMPH # 1.4 (1.2-3.4); LYMPH % 19.6 % (22.0-35.0); MEAN CELL VOLUME 92.7 fl (80.0-105.0); MEAN CORPUSCULAR HEMOGLOBIN 30.8 pg (25.0-35.0); MEAN CORPUSCULAR HGB CONC 33.3 g/dl (31.0-37.0); MEAN PLATELET VOLUME 9.3 fl (7.0-11.0); MONO # 0.6 (0.1-0.6); MONO % 7.7 % (1.0-6.0); WHITE BLOOD COUNT 7.3 10^3/ul (4.5-11.0)
[2017-03-06] MEDS: buPROPion 300 mg/24 Hours XL Tab PO SCH (09:30)
[2017-03-06] MEDS: Metoprolol Succinate 50 mg XL Tab PO SCH (09:31)
[2017-03-06] MEDS: Pantoprazole 40 mg EC Tab PO SCH (09:34)
[2017-03-06 12:17] VITALS: BP 109/62; PULSE 77; TEMP 98.3
--- NOTE | 2017-03-06 14:58 | RAD ---
HISTORY: r/o infiltrate COMPARISON: 03/04/2017 TECHNIQUE: Chest PA and lateral FINDINGS: LUNGS: Bibasilar linear scar/atelectasis. No infiltrate. PLEURA: Very small left pleural effusion. No right pleural effusion. No pneumothorax. CARDIOVASCULAR: AICD. Normal heart size. OSSEOUS STRUCTURES: No significant abnormalities. VISUALIZED UPPER ABDOMEN: Normal. OTHER FINDINGS: None. IMPRESSION: Very small left pleural effusion. Bibasilar linear scar/ atelectasis.
--- NOTE | 2017-03-06 15:47 | CP.PCM.DIS ---
Provider - Provider Date of Admission: 03/05/17 16:14 Attending physician: Rayray Gómez MD Primary care physician: NO PRIMARY CARE PROVIDER Consults: Cardio: Brett Time Spent in preparation of Discharge (in minutes): 45 Hospital Course - Lab Results Lab Results: Most Recent Lab Values WBC 7.3 10^3/ul (4.5-11.0) 03/06/17 06:00 RBC 4.51 10^6/uL (3.5-6.1) 03/06/17 06:00 Hgb 13.9 g/dL (14.0-18.0) L 03/06/17 06:00 Hct 41.8 % (42.0-52.0) L 03/06/17 06:00 MCV 92.7 fl (80.0-105.0) 03/06/17 06:00 MCH 30.8 pg (25.0-35.0) 03/06/17 06:00 MCHC 33.3 g/dl (31.0-37.0) 03/06/17 06:00 RDW 13.0 % (11.5-14.5) 03/06/17 06:00 Plt Count 269 10^3/uL (120.0-450.0) 03/06/17 06:00 MPV 9.3 fl (7.0-11.0) 03/06/17 06:00 Gran % 68.6 % (50.0-68.0) H 03/06/17 06:00 Lymph % (Auto) 19.6 % (22.0-35.0) L 03/06/17 06:00 [place] % (Auto) 7.7 % (1.0-6.0) H 03/06/17 06:00 Eos % (Auto) 4.0 % (1.5-5.0) 03/06/17 06:00 Baso % (Auto) 0.1 % (0.0-3.0) 03/06/17 06:00 Gran # 4.98 (1.4-6.5) 03/06/17 06:00 Lymph # 1.4 (1.2-3.4) 03/06/17 06:00 [place] # 0.6 (0.1-0.6) 03/06/17 06:00 Eos # 0.3 (0.0-0.7) 03/06/17 06:00 Baso # 0.01 K/mm3 (0.0-2.0) 03/06/17 06:00 PT 10.8 Seconds (9.9-11.8) 03/04/17 12:40 INR 1.00 (0.93-1.08) 03/04/17 12:40 APTT 29.6 Seconds (23.7-30.8) 03/04/17 12:40 D-Dimer, Quantitative 3.51 mg/L FEU (0-0.50) H 03/04/17 12:40 Sodium 142 mmol/L (132-148) 03/06/17 06:00 Potassium 4.4 mmol/L (3.6-5.0) 03/06/17 06:00 Chloride 105 mmol/L (98-107) 03/06/17 06:00 Carbon Dioxide 28 mmol/L (21-33) 03/06/17 06:00 Anion Gap 13 (10-20) 03/06/17 06:00 BUN 16 mg/dL (7-21) 03/06/17 06:00 Creatinine 0.8 mg/dL (0.5-1.4) 03/06/17 06:00 Est GFR ( Amer) > 60 03/06/17 06:00 Est GFR (Non-Af Amer) > 60 03/06/17 06:00 Random Glucose 97 mg/dL (70-110) 03/06/17 06:00 Hemoglobin A1c 6.0 % (4.2-6.5) 03/04/17 12:40 Calcium 9.3 mg/dL (8.4-10.5) 03/06/17 06:00 Phosphorus 3.9 mg/dL (2.5-4.5) 03/04/17 12:40 Magnesium 2.1 mg/dL (1.7-2.2) 03/04/17 12:40 Total Bilirubin 0.4 mg/dL (0.2-1.3) 03/06/17 06:00 AST 28 U/L (17-59) 03/06/17 06:00 ALT 21 U/L (7-56) 03/06/17 06:00 Alkaline Phosphatase 73 U/L (38-126) 03/06/17 06:00 Lactate Dehydrogenase 542 U/L (333-699) 03/04/17 12:40 Total Creatine Kinase 72 U/L (35-230) 03/04/17 12:40 Troponin I < 0.01 ng/mL 03/05/17 01:40 NT-Pro-B Natriuret Pep 64.2 pg/mL (0-450) 03/04/17 12:40 Total Protein 6.5 g/dL (5.8-8.3) 03/06/17 06:00 Albumin 3.9 g/dL (3.0-4.8) 03/06/17 06:00 Globulin 2.6 gm/dL 03/06/17 06:00 Albumin/Globulin Ratio 1.5 (1.1-1.8) 03/06/17 06:00 Triglycerides 106 mg/dL (35-160) 03/04/17 12:40 Cholesterol 145 mg/dL (130-200) 03/04/17 12:40 LDL Cholesterol Direct 99 mg/dL (0-129) 03/04/17 12:40 HDL Cholesterol 34 mg/dL (29-60) 03/04/17 12:40 Procalcitonin 0.09 NG/ML (0.19-0.49) L 03/05/17 08:40 TSH 3rd Generation 1.25 mIU/mL (0.46-4.68) 03/04/17 12:40 Urine Color Yellow (YELLOW) 03/05/17 20:34 Urine Appearance Clear (CLEAR) 03/05/17 20:34 Urine pH 6.5 (4.7-8.0) 03/05/17 20:34 Ur Specific [place] 1.015 (1.005-1.035) 03/05/17 20:34 Urine Protein Negative mg/dL (<30 mg/dL) 03/05/17 20:34 Urine Glucose (UA) Negative mg/dL (NEGATIVE) 03/05/17 20:34 Urine Ketones Negative mg/dL (NEGATIVE) 03/05/17 20:34 Urine Blood Negative (NEGATIVE) 03/05/17 20:34 Urine Nitrate Negative (NEGATIVE) 03/05/17 20:34 Urine Bilirubin Negative (NEGATIVE) 03/05/17 20:34 Urine Urobilinogen 1.0 E.U./dL (<1 E.U./dL) H 03/05/17 20:34 Ur Leukocyte Esterase Negative [place]/uL (NEGATIVE) 03/05/17 20:34 Urine Opiates Screen Positive (NEGATIVE) H 03/05/17 05:56 Urine Methadone Screen Negative (NEGATIVE) 03/05/17 05:56 Ur Barbiturates Screen Negative (NEGATIVE) 03/05/17 05:56 Ur Phencyclidine Scrn Negative (NEGATIVE) 03/05/17 05:56 Ur Amphetamines Screen Negative (NEGATIVE) 03/05/17 05:56 U Benzodiazepines Scrn Negative (NEGATIVE) 03/05/17 05:56 U Oth Cocaine Metabols Negative (NEGATIVE) 03/05/17 05:56 U Cannabinoids Screen Negative (NEGATIVE) 03/05/17 05:56 Blood Type O POSITIVE 03/04/17 12:40 Blood Type Confirm O POSITIVE 03/04/17 13:10 Antibody Screen Negative 03/04/17 12:40 BBK History Checked No verified bt 03/04/17 12:40 - Hospital Course Hospital Course: 41 M with 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 In the ED EKG was done and did not show any acute ST or T wave abnormalities. Basic lab work was done. Troponin x 1 was negative. CXR was done and showed linear atelectasis or fibrosis in the R base. D- dimer was elevated and VQ scan was done which showed low probability. Cardiology was consulted and pt was sent to telemetry for close observation. Serial trops ordered and was negative. Echo was done. Today patients pain mostly resolved. He did have 1 episode of fever of 101.5 but since than he has been afebrile. No Leukocytosis. Cardiology recommended continuing current management and okay to d/c with close follow up with his major account manager and Dr Casillas. No other complaints at this time. Pt complained of subjective fever and was uncomfortable going home on day 2 and was kept overnight. Today, pt denies any f/c, n/v, cp, sob, abd pain, n/v/d, urinary changes. CXR showed mild pleural effusion and linear atelectasis. Pt was clinically stable and discharged home to follow up as outpatient. Discharge Exam - Head Exam Head Exam: ATRAUMATIC, NORMAL INSPECTION, NORMOCEPHALIC - Eye Exam Eye Exam: EOMI, PERRL - ENT Exam ENT Exam: Mucous Membranes Moist - Neck Exam Neck exam: Full Rom - Respiratory Exam Respiratory Exam: Clear to PA & Lateral. absent: Rales, Rhonchi, Wheezes - Cardiovascular Exam Cardiovascular Exam: RRR. absent: Diastolic murmur, Gallop, Rubs, Systolic Murmur - GI/Abdominal Exam GI & Abdominal Exam: Soft. absent: Distended, Guarding, Rebound, Tenderness - Neurological Exam Neurological exam: Alert, Oriented x3 - Psychiatric Exam Psychiatric exam: Normal Affect, Normal Mood - Skin Skin Exam: Dry, Intact, Normal Color, Warm Discharge Plan - Follow Up Plan Condition: IMPROVED Disposition: HOME/ ROUTINE Instructions: Chest Pain (DC), Heart Healthy Diet (DC), Chest Pain (GEN) Additional Instructions: Follow up with your PMD with in 3-5 days. If your symptoms recur come back to the closest ED. Follow up with your major account manager and Dr Casillas within 1 week. Referrals: PCP,NO [Primary Care Provider] -
== END 2017-03-06 17:48 | disposition home or self-care (01) | DRG 143 ==
LOC: ED 12:26 → ERH 13:53 → 2RNO 18:56 → OBSVTOIN 03-05 16:14
PROVIDERS: ADMIT Internal Medicine; ATTEND Hospitalist
DX: R07.2 Precordial pain (principal); J90 Pleural effusion, not elsewhere classified; I42.9 Cardiomyopathy, unspecified; J98.11 Atelectasis; I51.4 Myocarditis, unspecified; B97.89 Other viral agents as the cause of diseases classified elsewhere; F32.9 Major depressive disorder, single episode, unspecified; Z87.891 Personal history of nicotine dependence; Z95.810 Presence of automatic (implantable) cardiac defibrillator

== ENCOUNTER 2017-04-04 14:46 | Emergency (ER) | payer MEDICAID ==
[2017-04-04 14:46] VITALS: BMI 25.8
[2017-04-04 15:18] VITALS: TEMP 98.2
--- NOTE | 2017-04-04 15:41 | ED PDOC ---
Arrival/HPI - General Chief Complaint: Fever Time Seen by Provider: 04/04/17 15:38 Historian: Patient - History of Present Illness Narrative History of Present Illness (Text): 04/04/17 15:38 Patient is a 41 y/o M with hx of viral myocarditis, with EF:20%, sp pacemaker placement on 09/08/16 with a recent procedure to reconnect a pacemaker lead 4 weeks ago presents to this ED c/o worsening of left anterior chest pain x 2 days. Patient admits chest pain started 4 weeks ago, but it had worsen since he is coughing more frequent than before. Patient denies other complains. Time/Duration: Other (see hpi) Symptom Onset: Sudden Quality: Aching Context: Home Past Medical History - Provider Review Nursing Documentation Reviewed: Yes - Infectious Disease Hx of Infectious Diseases: None - Tetanus Immunization Tetanus Immunization: Up to Date - Past Medical History Past Medical History: No Previous - Cardiac Hx Cardiac Disorders: Yes (pt uncertain if had viral myocarditis) Hx Hypertension: Yes (and hypotension) Hx Pacemaker: Yes (Pt states he has a defibrillator.) Other/Comment: Unknown cardiac problem-patient does not know. pacemaker/ defibrillator was implanted september 2016 at [facility], november 2016 2nd sx to fix lead, february 2017 sx #3 to fix lead, surgical incision under left breast and left chest covered with dermabond - Pulmonary Hx Respiratory Disorders: No - Neurological Hx Migraine: Yes - HEENT Hx HEENT Disorder: No - Renal Hx Renal Disorder: Yes Hx Kidney Stones: Yes - Endocrine/Metabolic Hx Endocrine Disorders: No - Hematological/Oncological Hx Blood Disorders: No - Integumentary Hx Dermatological Disorder: No - Musculoskeletal/Rheumatological Hx Falls: No - Gastrointestinal Hx Gastrointestinal Disorders: No - Genitourinary/Gynecological Hx Genitourinary Disorders: No - Psychiatric Hx Depression: Yes Hx Substance Use: No - Past Surgical History Past Surgical History: No Previous - Surgical History Hx Cardiac Catheterization: Yes Other/Comment: Pt reports he had a defibrillator inserted at [facility] - Anesthesia Hx Anesthesia: Yes Hx Anesthesia Reactions: No Hx Malignant Hyperthermia: No - Suicidal Assessment Feels Threatened In Home Enviroment: No Family/Social History - Physician Review Nursing Documentation Reviewed: Yes Family/Social History: Other Smoking Status: Former Smoker Hx Alcohol Use: No Hx Substance Use: No Hx Substance Use Treatment: No Allergies/Home Meds Allergies/Adverse Reactions: Allergies No Known Allergies Allergy (Verified 12/02/16 12:48) Home Medications: Home Meds Medication Instructions Recorded Confirmed Atorvastatin [Lipitor] 10 mg PO DAILY 10/02/16 04/04/17 Escitalopram [Lexapro] 10 mg PO DAILY 10/02/16 04/04/17 Lisinopril [Zestril] 10 mg PO DAILY 10/02/16 04/04/17 Metoprolol Succinate 50 mg PO DAILY 10/02/16 04/04/17 Omeprazole 40 mg PO DAILY 10/02/16 04/04/17 buPROPion XL [Wellbutrin XL] 300 mg DAILY 10/02/16 04/04/17 Spironolactone [Aldactone] 1 tab PO DAILY 03/04/17 04/04/17 Review of Systems - Review of Systems Constitutional: Normal. absent: Fatigue, Weight Change, Fevers Eyes: Normal ENT: Normal. absent: Sore Throat Respiratory: Cough. absent: SOB, Sputum, Wheezing Cardiovascular: Chest Pain, Other (see hpi). absent: Palpitations, Edema, Calf Pain, SHINE, Orthopnea, Syncope Gastrointestinal: Normal Genitourinary Male: Normal Musculoskeletal: Normal Skin: Normal Neurological: Normal Endocrine: Normal Hemo/Lymphatic: Normal Psychiatric: Normal Physical Exam Vital Signs Temp Pulse Resp BP Pulse Ox 04/04/17 20:36 88 16 125/68 99 04/04/17 19:25 88 17 101/54 L 98 04/04/17 15:14 98.2 F 87 20 142/82 97 Temperature: Afebrile Blood Pressure: Normal Pulse: Regular Respiratory Rate: Normal Appearance: Positive for: Well-Appearing, Non-Toxic, Comfortable Pain Distress: None Mental Status: Positive for: Alert and Oriented X 3 - Systems Exam Head: Present: Atraumatic, Normocephalic Pupils: Present: PERRL Extroacular Muscles: Present: EOMI Conjunctiva: Present: Normal Mouth: Present: Moist Mucous Membranes Neck: Present: Normal Range of Motion Respiratory/Chest: Present: Clear to Auscultation, Good Air Exchange, Tender to Palpation ((+) left anterior lower chest wall tenderness on palpation), Other (( +) scar located on left anterior lower thorax area). No: Respiratory Distress, Accessory Muscle Use, Wheezes, Decreased Breath Sounds, Rales, Rhonchi Cardiovascular: Present: Regular Rate and Rhythm, Normal S1, S2. No: Murmurs Abdomen: Present: Normal Bowel Sounds. No: Tenderness, Distention, Peritoneal Signs, Rebound, Guarding Back: Present: Normal Inspection Upper Extremity: Present: Normal Inspection. No: Cyanosis, Edema Lower Extremity: Present: Normal Inspection. No: Edema Neurological: Present: GCS=15, CN II-XII Intact, Speech Normal Skin: Present: Warm, Dry, Normal Color. No: Rashes Psychiatric: Present: Alert, Oriented x 3, Normal Insight, Normal Concentration Medical Decision Making ED Course and Treatment: 04/04/17 20:00 Patient requested to have Steroid medication for his symptoms. I reviewed some of the risks involved with the use of Decadron IVP with the patient, not only but including AVN, DM, glaucoma, osteoporosis, adrenal insufficiency, infection, HTN, GI perforation, cataracts. Patient understood risk, and he agrees to have Decadron since his symptoms have been worsening. 04/04/17 20:17 Patient is resting comfortably, is no longer having chest pain or shortness of breath. Clinical presentation is not suggestive of aortic dissection. Patient is being discharged home and is being advised to follow up with physician/ clinic in 1-2 days. Re-evaluation Time: 20:15 Reassessment Condition: Re-examined, Improved - Lab Interpretations Lab Results: 04/04/17 15:50 04/04/17 15:50 Lab Results 04/04/17 16:21: PT 12.0, INR 1.10 H, APTT 33.7, D-Dimer, Quantitative < 200 04/04/17 15:50: Sodium 144, Chloride 105, Potassium 4.4, Carbon Dioxide 27, Anion Gap 16, BUN 19, Creatinine 0.8, Est GFR ( Amer) > 60, Est GFR (Non- Af Amer) > 60, Random Glucose 81, Calcium 9.8, Total Bilirubin 0.7, AST 38, ALT 44, Alkaline Phosphatase 84, Lactate Dehydrogenase 613, Total Creatine Kinase 89 , Troponin I < 0.01, Total Protein 7.4, Albumin 4.7, Globulin 2.7, Albumin/ Globulin Ratio 1.7 04/04/17 15:50: pO2 52, VBG pH 7.39, VBG pCO2 48.0, VBG HCO3 29.1 H, VBG Total CO2 30.6 H, VBG O2 Sat (Calc) 91.2 H, VBG Base Excess 3.3 H, VBG Potassium 4.4, Sodium 140.0, Chloride 106.0, Glucose 76, Lactate 1.3, FiO2 21.0, Venous Blood Potassium 4.4 04/04/17 15:50: WBC 8.0, RBC 4.91, Hgb 15.5, Hct 45.7, MCV 93.1, MCH 31.6, MCHC 33.9, RDW 13.5, Plt Count 213, MPV 9.5, Gran % 59.9, Lymph % (Auto) 29.3, [place] % (Auto) 7.7 H, Eos % (Auto) 2.9, Baso % (Auto) 0.2, Gran # 4.81, Lymph # 2.4, [place] # 0.6, Eos # 0.2, Baso # 0.02 I have reviewed the lab results: Yes Interpretation: No clinic. lab abnormalty - RAD Interpretation Narrative RAD Interpretations (Text): 04/04/17 19:45 HISTORY: cough COMPARISON: Chest radiographs 03/06/2017. FINDINGS: Stable appearing implanted cardiac defibrillator/pacemaker. LUNGS: No active pulmonary disease. PLEURA: No significant pleural effusion identified, no pneumothorax apparent. CARDIOVASCULAR: Normal. OSSEOUS STRUCTURES: No significant abnormalities. VISUALIZED UPPER ABDOMEN: Normal. OTHER FINDINGS: None. IMPRESSION: No interval acute cardiopulmonary disease appreciated. Radiology Orders: 04/04/17 15:39 CHEST PORTABLE [RAD] Stat - EKG Interpretation Interpreted by ED Physician: Yes (Electronic ventricular pacemaker @ 64 bpm) Type: 12 lead EKG Comparison: No previous EKG avail. - Medication Orders Current Medication Orders: Discontinued Medications Dexamethasone (Decadron Inj) 10 mg IVP STAT STA Stop: 04/04/17 20:06 Last Admin: 04/04/17 20:16 Dose: 10 mg IVP Administration Document 04/04/17 20:16 JOL (Rec: 04/04/17 20:16 JOL [id number]) Charges for Administration # of IVP Administrations 1 Ketorolac Tromethamine (Toradol) 15 mg IVP STAT STA Stop: 04/04/17 19:53 Last Admin: 04/04/17 20:03 Dose: 15 mg MAR Pain Assessment Document 04/04/17 20:03 JOL (Rec: 04/04/17 20:03 [facility] [place] [id number] Pain Reassessment Is this a pain reassessment? No Sleep Is patient sleeping during reassessment? No Presence of Pain Presence of Pain Yes IVP Administration Document 04/04/17 20:03 JOL (Rec: 04/04/17 20:03 [facility] [id number] Charges for Administration # of IVP Administrations 1 Promethazine HCl/Codeine (Phenergan/Codeine Oral Syrup) 5 ml PO STAT STA Stop: 04/04/17 17:47 Last Admin: 04/04/17 18:51 Dose: 5 ml Disposition/Present on Arrival - Present on Arrival Any Indicators Present on Arrival: No History of DVT/PE: No History of Uncontrolled Diabetes: No Urinary Catheter: No History of Decub. Ulcer: No History Surgical Site Infection Following: None - Disposition Have Diagnosis and Disposition been Completed?: Yes Diagnosis: Chest wall pain Disposition: HOME/ ROUTINE Disposition Time: 20:14 Patient Plan: Discharge Condition: GOOD Additional Instructions: Call private doctor for follow up visit in 1-2 days. Take medication as instructed with food. Do not drive or operate machinery when taking cough medication. Return to emergency if symptoms. Prescriptions: Benzonatate [Tessalon Perles] 100 mg PO TID PRN #20 sgl PRN Reason: Cough Doxycycline Monohydrate 100 mg PO BID #20 tablet Hydrocodone/Chlorpheniramine [Tussionex] 5 ml PO Q6H PRN #50 ml PRN Reason: Cough Referrals: Ally Porter DO [Primary Care Provider] - Follow up with primary Forms: [employer] (Tanzanian)
[2017-04-04 16:04] LABS: VENOUS BLOOD GAS BASE EXCESS 3.3 mmol/L (0.0-2.0); VENOUS BLOOD PH 7.39 (7.32-7.43)
[2017-04-04 16:06] LABS: BASO # 0.02 K/mm3 (0.0-2.0); BASO % 0.2 % (0.0-3.0); EOS # 0.2 (0.0-0.7); EOS % 2.9 % (1.5-5.0); GRAN # 4.81 (1.4-6.5); GRAN % 59.9 % (50.0-68.0); HEMATOCRIT 45.7 % (42.0-52.0); LYMPH # 2.4 (1.2-3.4); LYMPH % 29.3 % (22.0-35.0); MEAN CELL VOLUME 93.1 fl (80.0-105.0); MEAN CORPUSCULAR HEMOGLOBIN 31.6 pg (25.0-35.0); MEAN CORPUSCULAR HGB CONC 33.9 g/dl (31.0-37.0); MEAN PLATELET VOLUME 9.5 fl (7.0-11.0); MONO # 0.6 (0.1-0.6); MONO % 7.7 % (1.0-6.0); RED CELL DISTRIBUTION WIDTH 13.5 % (11.5-14.5)
[2017-04-04 16:13] LABS: ALB/GLOB RATIO 1.7 (1.1-1.8); ALKALINE PHOSPHATASE 84 U/L (38-126); ALT/SGPT 44 U/L (7-56); AST/SGOT 38 U/L (17-59); BILIRUBIN,TOTAL 0.7 mg/dL (0.2-1.3); BLOOD UREA NITROGEN 19 mg/dL (7-21); CALCIUM 9.8 mg/dL (8.4-10.5); CARBON DIOXIDE 27 mmol/L (21-33); CHLORIDE 105 mmol/L (98-107); GFR AFRICAN-AMERICAN > 60; GLUCOSE,RANDOM 81 mg/dL (70-110); SODIUM 144 mmol/L (132-148); TOTAL PROTEIN 7.4 g/dL (5.8-8.3)
[2017-04-04 16:14] LABS: POTASSIUM 4.4 mmol/L (3.6-5.0)
[2017-04-04 16:35] LABS: TROPONIN I < 0.01 ng/mL
[2017-04-04 16:41] LABS: PARTIAL THROMBOPLASTIN TIME 33.7 Seconds (25.1-36.5)
[2017-04-04] MEDS ORDERED: Promethazine/Cod 6.25mg-10mg/5ml Syr UD PO STA (17:46)
--- NOTE | 2017-04-04 18:30 | RAD ---
HISTORY: cough COMPARISON: Chest radiographs 03/06/2017. FINDINGS: Stable appearing implanted cardiac defibrillator/pacemaker. LUNGS: No active pulmonary disease. PLEURA: No significant pleural effusion identified, no pneumothorax apparent. CARDIOVASCULAR: Normal. OSSEOUS STRUCTURES: No significant abnormalities. VISUALIZED UPPER ABDOMEN: Normal. OTHER FINDINGS: None. IMPRESSION: No interval acute cardiopulmonary disease appreciated.
[2017-04-04 19:25] VITALS: PULSE 88
[2017-04-04 19:25] LABS: D DIMER < 200 ng/mL (0-243)
[2017-04-04 21:10] VITALS: BP 125/68; RESP 16; O2SAT 99
--- NOTE | 2017-04-06 09:40 | CARD ---
APPROVED REPORT EKG Measurement Heart [id number] <Conclusion> Electronic ventricular pacemaker: 100% V. Paced and A. Sensed. No change
== END 2017-04-04 20:36 | disposition home or self-care (01) ==
LOC: ED 14:46
DX: R07.89 Other chest pain (principal)
CPT/HCPCS: 71010; 80053; 82550; 82803; 83615; 84484; 85025; 85378; 85610; 85730; 96374; 96375; 99284; J1100; J1885

== ENCOUNTER 2017-05-17 15:37 | Emergency (ER) | payer MEDICAID ==
[2017-05-17 15:52] VITALS: TEMP 97.5; O2SAT 96
[2017-05-17 15:54] VITALS: BMI 26.1
--- NOTE | 2017-05-17 16:07 | ED PDOC ---
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 Patient reported was told by collet gluer and thorasic surgeon that he needs pacemaker adjusted. pt states due to see surgeon at end of month. Patient denies any trauma. Denies any fever or any other complaints at this time. also complaining of of mild cough, no sob. 05/17/17 16:54 Symptom Onset: Sudden Symptom Course: Unchanged Activities at Onset: Rest Context: Home Past Medical History - Provider Review Nursing Documentation Reviewed: Yes - Infectious Disease Hx of Infectious Diseases: None - Tetanus Immunization Tetanus Immunization: Up to Date - Past Medical History Past Medical History: No Previous - Cardiac Hx Cardiac Disorders: Yes (pt uncertain if had viral myocarditis) Hx Hypertension: Yes (and hypotension) Hx Pacemaker: Yes (Pt states he has a defibrillator.) Other/Comment: Unknown cardiac problem-patient does not know. pacemaker/ defibrillator was implanted september 2016 at [facility], november 2016 2nd sx to fix lead, february 2017 sx #3 to fix lead, surgical incision under left breast and left chest covered with dermabond - Pulmonary Hx Respiratory Disorders: No - Neurological Hx Neurological Disorder: Yes Hx Migraine: Yes - HEENT Hx HEENT Disorder: No - Renal Hx Renal Disorder: Yes Hx Kidney Stones: Yes - Endocrine/Metabolic Hx Endocrine Disorders: No - Hematological/Oncological Hx Blood Disorders: No - Integumentary Hx Dermatological Disorder: No - Musculoskeletal/Rheumatological Hx Musculoskeletal Disorders: No Hx Falls: No - Gastrointestinal Hx Gastrointestinal Disorders: No - Genitourinary/Gynecological Hx Genitourinary Disorders: No - Psychiatric Hx Psychophysiologic Disorder: Yes Hx Depression: Yes Hx Substance Use: No - Past Surgical History Past Surgical History: No Previous - Surgical History Hx Cardiac Catheterization: Yes Other/Comment: Pt reports he had a defibrillator inserted at [facility] - Anesthesia Hx Anesthesia: Yes Hx Anesthesia Reactions: No Hx Malignant Hyperthermia: No - Suicidal Assessment Feels Threatened In Home Enviroment: No Family/Social History - Physician Review Nursing Documentation Reviewed: Yes Family/Social History: No Known Family HX Smoking Status: Former Smoker Hx Alcohol Use: No Hx Substance Use: No Hx Substance Use Treatment: No Allergies/Home Meds Allergies/Adverse Reactions: Allergies No Known Allergies Allergy (Verified 12/02/16 12:48) Home Medications: Home Meds Medication Instructions Recorded Confirmed Atorvastatin [Lipitor] 10 mg PO DAILY 10/02/16 04/04/17 Escitalopram [Lexapro] 10 mg PO DAILY 10/02/16 04/04/17 Lisinopril [Zestril] 10 mg PO DAILY 10/02/16 04/04/17 Metoprolol Succinate 50 mg PO DAILY 10/02/16 04/04/17 Omeprazole 40 mg PO DAILY 10/02/16 04/04/17 buPROPion XL [Wellbutrin XL] 300 mg DAILY 10/02/16 04/04/17 Spironolactone [Aldactone] 1 tab PO DAILY 03/04/17 04/04/17 Review of Systems - Physician Review All systems were reviewed & negative as marked: Yes - Review of Systems Constitutional: absent: Fevers Cardiovascular: Chest Pain (left sided) Physical Exam Vital Signs Reviewed: Yes Vital Signs Temp Pulse Pulse Resp BP Pulse Ox 05/17/17 17:46 80 26 H 133/58 L 96 05/17/17 15:55 82 05/17/17 15:50 97.5 F L 93 H 14 138/83 96 Temperature: Afebrile Blood Pressure: Normal Pulse: Regular Respiratory Rate: Normal Appearance: Positive for: Well-Appearing, Non-Toxic, Comfortable Pain Distress: None Mental Status: Positive for: Alert and Oriented X 3 - Systems Exam Head: Present: Atraumatic, Normocephalic Pupils: Present: PERRL Extroacular Muscles: Present: EOMI Conjunctiva: Present: Normal Mouth: Present: Moist Mucous Membranes Neck: Present: Normal Range of Motion Respiratory/Chest: Present: Clear to Auscultation, Good Air Exchange, Other ( incisions clean, dry, intact). No: Respiratory Distress, Accessory Muscle Use Cardiovascular: Present: Regular Rate and Rhythm, Normal S1, S2. No: Murmurs Abdomen: Present: Normal Bowel Sounds. No: Tenderness, Distention, Peritoneal Signs Back: Present: Normal Inspection Upper Extremity: Present: Normal Inspection. No: Cyanosis, Edema Lower Extremity: Present: Normal Inspection. No: Edema Neurological: Present: GCS=15, CN II-XII Intact, Speech Normal Skin: Present: Warm, Dry, Normal Color. No: Rashes Psychiatric: Present: Alert, Oriented x 3, Normal Insight, Normal Concentration Medical Decision Making ED Course and Treatment: 05/17/17 16:04 Impression: A 41 year old male with left sided chest pain. atypical pain, chest wall pain. previous records reviewed, with recent admission and neg cardiac cath. pt with atypical pain. Plan: -- EKG -- chest xray -- labs -- Urinalysis -- Reassess and disposition Prior Visits: Notes and results from previous visits were reviewed. Patient was last seen in the emergency department on 04/04/17 for evaluation of left anterior chest pain. Progress Notes: EKG: Ordered, reviewed, and independently interpreted the EKG. Rate : 82 BPM Rhythm : paced rhythm Interpretation : No ST-segment elevations, normal intervals. 05/17/17 16:54 05/17/17 17:30 Chest xray Creator : Anthony Walls MD FINDINGS: LUNGS: No active pulmonary disease. PLEURA: No significant pleural effusion identified, no pneumothorax apparent. CARDIOVASCULAR: No radiographic findings to suggest acute or significant cardiovascular disease. Position/ configuration of pacemaker\AICD device: Satisfactory. OSSEOUS STRUCTURES: No significant abnormalities. VISUALIZED UPPER ABDOMEN: Normal. IMPRESSION: No active disease. No significant interval change compared to the prior examination(s). 05/17/17 17:39 pt specifically requests inhaler, although lungs clear, case discussed with dr west. agrees with [facility] for continued outpt management 05/17/17 18:06 - Lab Interpretations Lab Results: 05/17/17 16:10 05/17/17 16:10 Lab Results 05/17/17 16:10: Sodium 140, Potassium 3.9, Chloride 105, Carbon Dioxide 27, Anion Gap 13, BUN 11, Creatinine 0.9, Est GFR ( Amer) > 60, Est GFR (Non- Af Amer) > 60, Random Glucose 128 H, Calcium 9.3, Magnesium 2.0, Total Bilirubin 0.4, AST 40, ALT 41, Alkaline Phosphatase 80, Lactate Dehydrogenase 415, Total Creatine Kinase 134, Troponin I < 0.01, NT-Pro-B Natriuret Pep 32.8, Total Protein 6.8, Albumin 4.3, Globulin 2.5, Albumin/Globulin Ratio 1.7 05/17/17 16:10: PT 11.9, INR 1.09 H, APTT 31.5 05/17/17 16:10: WBC 5.3 D, RBC 4.96, Hgb 15.5, Hct 46.8, MCV 94.4, MCH 31.3, MCHC 33.1, RDW 13.3, Plt Count 197, MPV 9.5, Gran % 57.0, Lymph % (Auto) 31.1, [place] % (Auto) 6.8 H, Eos % (Auto) 4.9, Baso % (Auto) 0.2, Gran # 3.04, Lymph # 1.7, [place] # 0.4, Eos # 0.3, Baso # 0.01 I have reviewed the lab results: Yes - RAD Interpretation Radiology Orders: 05/17/17 15:56 CHEST PORTABLE [RAD] Stat - EKG Interpretation Interpreted by ED Physician: Yes Type: 12 lead EKG - Scribe Statement The provider has reviewed the documentation as recorded by the Irene Robles Provider Scribe Attestation: All medical record entries made by the Irene were at my direction and personally dictated by me. I have reviewed the chart and agree that the record accurately reflects my personal performance of the history, physical exam, medical decision making, and the department course for this patient. I have also personally directed, reviewed, and agree with the discharge instructions and disposition. Disposition/Present on Arrival - Present on Arrival Any Indicators Present on Arrival: No History of DVT/PE: No History of Uncontrolled Diabetes: No Urinary Catheter: No History of Decub. Ulcer: No History Surgical Site Infection Following: None - Disposition Have Diagnosis and Disposition been Completed?: Yes Diagnosis: Chest wall pain Disposition: HOME/ ROUTINE Disposition Time: 16:57 Condition: STABLE Discharge Instructions (ExitCare): Chest Pain (ED) Additional Instructions: follow up with your doctor. return to emergency room with worsening symptoms or concerns. you need to follow up with your surgeron and collet gluer Prescriptions: Albuterol 0.083% [Albuterol 0.083% Inhal Manju (2.5 mg/3 ml) UD] 2.5 mg IH Q4 PRN #1 neb PRN Reason: Wheezing Referrals: Isamar West MD [Staff Provider] - Follow up with primary Ally Porter DO [Primary Care Provider] - Follow up with primary Isamar Sahu MD [Staff Provider] - Follow up with primary Forms: [employer] (Portuguese)
[2017-05-17 16:22] LABS: BASO # 0.01 K/mm3 (0.0-2.0); BASO % 0.2 % (0.0-3.0); EOS # 0.3 (0.0-0.7); EOS % 4.9 % (1.5-5.0); GRAN # 3.04 (1.4-6.5); HEMATOCRIT 46.8 % (42.0-52.0); LYMPH # 1.7 (1.2-3.4); LYMPH % 31.1 % (22.0-35.0); MEAN CELL VOLUME 94.4 fl (80.0-105.0); MEAN CORPUSCULAR HEMOGLOBIN 31.3 pg (25.0-35.0); MEAN CORPUSCULAR HGB CONC 33.1 g/dl (31.0-37.0); MEAN PLATELET VOLUME 9.5 fl (7.0-11.0); MONO # 0.4 (0.1-0.6); MONO % 6.8 % (1.0-6.0); RED CELL DISTRIBUTION WIDTH 13.3 % (11.5-14.5); WHITE BLOOD COUNT 5.3 10^3/ul (4.5-11.0)
[2017-05-17 16:32] LABS: INR 1.09 (0.93-1.08); PARTIAL THROMBOPLASTIN TIME 31.5 Seconds (25.1-36.5)
[2017-05-17 16:39] LABS: ALB/GLOB RATIO 1.7 (1.1-1.8); ALKALINE PHOSPHATASE 80 U/L (38-126); ALT/SGPT 41 U/L (7-56); AST/SGOT 40 U/L (17-59); BILIRUBIN,TOTAL 0.4 mg/dL (0.2-1.3); BLOOD UREA NITROGEN 11 mg/dL (7-21); CALCIUM 9.3 mg/dL (8.4-10.5); CARBON DIOXIDE 27 mmol/L (21-33); CHLORIDE 105 mmol/L (98-107); GFR AFRICAN-AMERICAN > 60; GLUCOSE,RANDOM 128 mg/dL (70-110); POTASSIUM 3.9 mmol/L (3.6-5.0); SODIUM 140 mmol/L (132-148); TOTAL PROTEIN 6.8 g/dL (5.8-8.3)
[2017-05-17 16:50] LABS: TROPONIN I < 0.01 ng/mL
--- NOTE | 2017-05-17 17:27 | RAD ---
HISTORY: Chest pain COMPARISON: 04/04/2017 FINDINGS: LUNGS: No active pulmonary disease. PLEURA: No significant pleural effusion identified, no pneumothorax apparent. CARDIOVASCULAR: No radiographic findings to suggest acute or significant cardiovascular disease. Position/ configuration of pacemaker device: Satisfactory. OSSEOUS STRUCTURES: No significant abnormalities. VISUALIZED UPPER ABDOMEN: Normal. OTHER FINDINGS: None. IMPRESSION: No active disease. No significant interval change compared to the prior examination(s).
[2017-05-17 17:47] VITALS: BP 133/58; RESP 26
[2017-05-17 17:50] VITALS: PULSE 82
--- NOTE | 2017-05-17 23:47 | CARD ---
APPROVED REPORT EKG Measurement Heart [id number] <Conclusion> Atrial sensed, ventricular paced rhythm
== END 2017-05-17 17:50 | disposition home or self-care (01) ==
LOC: ED 15:37
DX: R07.89 Other chest pain (principal); I10 Essential (primary) hypertension; Z87.891 Personal history of nicotine dependence

== ENCOUNTER 2017-05-30 01:05 | Emergency (ER) | payer MEDICAID ==
[2017-05-30 01:05] VITALS: BMI 26.1
[2017-05-30 01:21] VITALS: RESP 18; TEMP 98.3
--- NOTE | 2017-05-30 01:26 | ED PDOC ---
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 The patient states that he has been taking peg-seltzer and omeprazole without any relief. The patient denies fevers, chills, headache, dizziness, chest pain, shortness of breath, dyspnea on exertion, cough, back pain, neck pain, urinary/ bowel changes, or any other complaint. PMD: Dr. Baudilio Porter Time/Duration: Other (Today) Symptom Onset: Sudden Symptom Course: Unchanged Activities at Onset: Rest Past Medical History - Provider Review Nursing Documentation Reviewed: Yes - Infectious Disease Hx of Infectious Diseases: None - Tetanus Immunization Tetanus Immunization: Up to Date - Past Medical History Past Medical History: No Previous - Cardiac Hx Cardiac Disorders: Yes (pt uncertain if had viral myocarditis) Hx Hypertension: Yes (and hypotension) Hx Pacemaker: Yes (Pt states he has a defibrillator.) Other/Comment: Unknown cardiac problem-patient does not know. pacemaker/ defibrillator was implanted september 2016 at [facility], november 2016 2nd sx to fix lead, february 2017 sx #3 to fix lead, surgical incision under left breast and left chest covered with dermabond - Pulmonary Hx Respiratory Disorders: No - Neurological Hx Neurological Disorder: No - HEENT Hx HEENT Disorder: No - Renal Hx Renal Disorder: Yes Hx Kidney Stones: Yes - Endocrine/Metabolic Hx Endocrine Disorders: No - Hematological/Oncological Hx Blood Disorders: No - Integumentary Hx Dermatological Disorder: No - Musculoskeletal/Rheumatological Hx Musculoskeletal Disorders: No Hx Falls: No - Gastrointestinal Hx Gastrointestinal Disorders: No - Genitourinary/Gynecological Hx Genitourinary Disorders: No - Psychiatric Hx Psychophysiologic Disorder: No Hx Substance Use: No - Past Surgical History Past Surgical History: No Previous - Surgical History Hx Cardiac Catheterization: Yes Other/Comment: Pt reports he had a defibrillator inserted at [facility] - Anesthesia Hx Anesthesia: Yes Hx Anesthesia Reactions: No Hx Malignant Hyperthermia: No - Suicidal Assessment Feels Threatened In Home Enviroment: No Family/Social History - Physician Review Nursing Documentation Reviewed: Yes Family/Social History: No Known Family HX Smoking Status: Former Smoker Hx Alcohol Use: No Hx Substance Use: No Hx Substance Use Treatment: No Allergies/Home Meds Allergies/Adverse Reactions: Allergies No Known Allergies Allergy (Verified 12/02/16 12:48) Home Medications: Home Meds Medication Instructions Recorded Confirmed Atorvastatin [Lipitor] 10 mg PO DAILY 10/02/16 05/30/17 Escitalopram [Lexapro] 10 mg PO DAILY 10/02/16 05/30/17 Lisinopril [Zestril] 10 mg PO DAILY 10/02/16 05/30/17 Metoprolol Succinate 50 mg PO DAILY 10/02/16 05/30/17 Omeprazole 40 mg PO DAILY 10/02/16 05/30/17 buPROPion XL [Wellbutrin XL] 300 mg DAILY 10/02/16 05/30/17 Spironolactone [Aldactone] 1 tab PO DAILY 03/04/17 05/30/17 Review of Systems - Physician Review All systems were reviewed & negative as marked: Yes - Review of Systems Constitutional: absent: Fevers, Night Sweats Respiratory: absent: SOB, Cough Cardiovascular: absent: Chest Pain, SHINE Gastrointestinal: Abdominal Pain (Epigastric abdominal pain), Diarrhea, Nausea, Vomiting. absent: Stool Changes Genitourinary Male: absent: Urinary Output Changes Musculoskeletal: absent: Back Pain, Neck Pain Neurological: absent: Headache, Dizziness Physical Exam Vital Signs Reviewed: Yes Vital Signs Temp Pulse Resp BP Pulse Ox 05/30/17 04:05 65 18 117/77 96 05/30/17 01:20 98.3 F 83 18 132/81 100 Temperature: Afebrile Blood Pressure: Normal Pulse: Regular Respiratory Rate: Normal Appearance: Positive for: Well-Appearing, Non-Toxic, Comfortable Pain Distress: None Mental Status: Positive for: Alert and Oriented X 3 - Systems Exam Head: Present: Atraumatic, Normocephalic Pupils: Present: PERRL Extroacular Muscles: Present: EOMI Conjunctiva: Present: Normal Mouth: Present: Moist Mucous Membranes Neck: Present: Normal Range of Motion Respiratory/Chest: Present: Clear to Auscultation, Good Air Exchange. No: Respiratory Distress, Accessory Muscle Use Cardiovascular: Present: Regular Rate and Rhythm, Normal S1, S2. No: Murmurs Abdomen: Present: Tenderness (epigastric tenderness) Back: Present: Normal Inspection Upper Extremity: Present: Normal Inspection. No: Cyanosis, Edema Lower Extremity: Present: Normal Inspection. No: Edema Neurological: Present: GCS=15, CN II-XII Intact, Speech Normal Skin: Present: Warm, Dry, Normal Color. No: Rashes Psychiatric: Present: Alert, Oriented x 3, Normal Insight, Normal Concentration Medical Decision Making ED Course and Treatment: 05/30/17 01:27 Impression: A 41 year old male presents to the emergency department complaining of epigastric abdominal pain, nausea, vomiting, diarrhea. Plan: -- EKG -- Labs -- Urinalysis -- Zofran and Protonix -- Reassess and disposition Prior Visits: Notes and results from previous visits were reviewed. Patient was last seen in the emergency department on 05/17/17. The patient was seen in the emergency department for left sided chest pain. The patient was dsicharged home. Progress Notes: EKG: Ordered, reviewed, and independently interpreted the EKG. Rate : 63 BPM Rhythm : NSR Interpretation : LBBB Comparison : Documented LBBB dated 12/13/2014. 05/30/17 03:58: On reevaluation, patient's abdomen is soft. Labs are unremarkable. Patient in no distress. no cardio pulm complaints. 05/30/17 05:23: CT no incidental findings. Will follow up outpatient for kidney legion. CT Abdomen and Pelvis With Intravenous Contrast Dictated and Authenticated by: Arnoldo Gray MD 05/30/2017 3:56 AM Eastern Time ([place] & [place]) IMPRESSION: 1. Diverticulosis without definite CT evidence of diverticulitis. 2. Kidney lesion, indeterminate. Recommend nonemergent ultrasound or MRI. 3. Incidental/non-acute findings are described above. 05/30/17 19:18 - Lab Interpretations Lab Results: 05/30/17 01:30 05/30/17 01:30 Lab Results 05/30/17 04:00: Urine Color Yellow, Urine Appearance Clear, Urine pH 8.0, Ur Specific Smilax 1.010, Urine Protein Negative, Urine Glucose (UA) Negative, Urine Ketones Negative, Urine Blood Negative, Urine Nitrate Negative, Urine Bilirubin Negative, Urine Urobilinogen 2.0 H, Ur Leukocyte Esterase Negative 05/30/17 01:30: Sodium 143, Potassium 4.1, Chloride 106, Carbon Dioxide 27, Anion Gap 15, BUN 13, Creatinine 0.8, Est GFR ( Amer) > 60, Est GFR (Non- Af Amer) > 60, Random Glucose 76, Calcium 8.8, Magnesium 2.2, Total Bilirubin 0.2, AST 45, ALT 67 H, Alkaline Phosphatase 83, Lactate Dehydrogenase 467, Total Creatine Kinase 114, Troponin I < 0.01, Total Protein 6.4, Albumin 4.0, Globulin 2.4, Albumin/Globulin Ratio 1.6, Lipase 56 05/30/17 01:30: PT 12.3, INR 1.13 H, APTT 31.3 05/30/17 01:30: WBC 4.7, RBC 4.50, Hgb 14.0, Hct 41.8 L, MCV 92.9, MCH 31.1, MCHC 33.5, RDW 13.2, Plt Count 216, MPV 9.3, Gran % 44.6 L, Lymph % (Auto) 43.6 H, [place] % (Auto) 7.3 H, Eos % (Auto) 4.3, Baso % (Auto) 0.2, Gran # 2.09, Lymph # 2.0, [place] # 0.3, Eos # 0.2, Baso # 0.01 I have reviewed the lab results: Yes - RAD Interpretation Radiology Orders: 05/30/17 02:15 ABD & PELVIS IV CONTRAST ONLY [CT] Stat - EKG Interpretation Interpreted by ED Physician: Yes Type: 12 lead EKG - Medication Orders Current Medication Orders: Discontinued Medications Ondansetron HCl (Zofran Inj) 4 mg IVP STAT STA Stop: 05/30/17 01:24 Last Admin: 05/30/17 01:39 Dose: 4 mg IVP Administration Document 05/30/17 01:39 YP (Rec: 05/30/17 01:39 YP [facility] [id number] Charges for Administration # of IVP Administrations 1 Pantoprazole Sodium (Protonix Inj) 40 mg IVP STAT STA Stop: 05/30/17 01:24 Last Admin: 05/30/17 01:39 Dose: 40 mg IVP Administration Document 05/30/17 01:39 YP (Rec: 12/24/17 01:39 YP [facility] [id number]) Charges for Administration # of IVP Administrations 1 - Scribe Statement The provider has reviewed the documentation as recorded by the Shantibe Marcie Veliz Provider Shantibe Attestation: All medical record entries made by the Scribe were at my direction and personally dictated by me. I have reviewed the chart and agree that the record accurately reflects my personal performance of the history, physical exam, medical decision making, and the department course for this patient. I have also personally directed, reviewed, and agree with the discharge instructions and disposition. Disposition/Present on Arrival - Present on Arrival Any Indicators Present on Arrival: No History of DVT/PE: No History of Uncontrolled Diabetes: No Urinary Catheter: No History of Decub. Ulcer: No History Surgical Site Infection Following: None - Disposition Have Diagnosis and Disposition been Completed?: Yes Diagnosis: Epigastric pain Disposition: HOME/ ROUTINE Disposition Time: 04:50 Condition: STABLE Discharge Instructions (ExitCare): Acute Abdominal Pain (ED) Additional Instructions: return to er with worsening symptoms or concerns. please follow up with your doctor. Prescriptions: Famotidine [Pepcid] 20 mg PO DAILY #20 tab Ondansetron ODT [Zofran ODT] 4 mg PO Q8 PRN #20 odt PRN Reason: Nausea/Vomiting Referrals: Lincoln Carreon MD [Staff Provider] - Follow up with primary Ally Porter DO [Primary Care Provider] - Follow up with primary Forms: [employer] (Omani)
[2017-05-30 01:54] LABS: BASO # 0.01 K/mm3 (0.0-2.0); BASO % 0.2 % (0.0-3.0); EOS # 0.2 (0.0-0.7); EOS % 4.3 % (1.5-5.0); GRAN # 2.09 (1.4-6.5); GRAN % 44.6 % (50.0-68.0); HEMATOCRIT 41.8 % (42.0-52.0); LYMPH % 43.6 % (22.0-35.0); MEAN CELL VOLUME 92.9 fl (80.0-105.0); MEAN CORPUSCULAR HEMOGLOBIN 31.1 pg (25.0-35.0); MEAN CORPUSCULAR HGB CONC 33.5 g/dl (31.0-37.0); MEAN PLATELET VOLUME 9.3 fl (7.0-11.0); MONO # 0.3 (0.1-0.6); MONO % 7.3 % (1.0-6.0); RED CELL DISTRIBUTION WIDTH 13.2 % (11.5-14.5); WHITE BLOOD COUNT 4.7 10^3/ul (4.5-11.0)
[2017-05-30 02:01] LABS: INR 1.13 (0.93-1.08); PARTIAL THROMBOPLASTIN TIME 31.3 Seconds (25.1-36.5)
[2017-05-30 02:07] LABS: TROPONIN I < 0.01 ng/mL
[2017-05-30 02:13] LABS: ALB/GLOB RATIO 1.6 (1.1-1.8); ALKALINE PHOSPHATASE 83 U/L (38-126); ALT/SGPT 67 U/L (7-56); AST/SGOT 45 U/L (17-59); BILIRUBIN,TOTAL 0.2 mg/dL (0.2-1.3); BLOOD UREA NITROGEN 13 mg/dL (7-21); CALCIUM 8.8 mg/dL (8.4-10.5); CARBON DIOXIDE 27 mmol/L (21-33); CHLORIDE 106 mmol/L (98-107); GFR AFRICAN-AMERICAN > 60; GLUCOSE,RANDOM 76 mg/dL (70-110); LIPASE 56 U/L (23-300); MAGNESIUM 2.2 mg/dL (1.7-2.2); POTASSIUM 4.1 mmol/L (3.6-5.0); SODIUM 143 mmol/L (132-148); TOTAL PROTEIN 6.4 g/dL (5.8-8.3)
[2017-05-30] MEDS ORDERED: Iohexol 350 MG/100 ML VIAL ONE (02:33)
--- NOTE | 2017-05-30 03:56 | CT ---
EXAM: CT Abdomen and Pelvis With Intravenous Contrast CLINICAL HISTORY: 41 years old, male; Pain; Abdominal pain; Generalized; Prior surgery; Surgery type: Pacemaker insertion; Additional info: Upper abd pain TECHNIQUE: Axial computed tomography images of the abdomen and pelvis with intravenous contrast. All CT scans at this facility use one or more dose reduction techniques, viz.: automated exposure control; ma/kV adjustment per patient size (including targeted exams where dose is matched to indication; i.e. head); or iterative reconstruction technique. Coronal and sagittal reformatted images were created and reviewed. CONTRAST: 100 mL of OMNI 350 administered intravenously. COMPARISON: CT - ABD PELVIS W/O PO OR IV CONT 2016-06-18 11:11 FINDINGS: Lower thorax: Pacemaker leads. Minimal atelectasis/scarring. ABDOMEN: Liver: Unremarkable. No mass. Gallbladder and bile ducts: No calcified stones. No ductal dilation. Pancreas: No ductal dilation. No mass. Spleen: No splenomegaly. Adrenals: No mass. Kidneys and ureters: Several probable renal cysts. 2.0 x 1.5 x 1.5 cm lesion within RIGHT kidney, indeterminate by CT criteria. No hydronephrosis. Stomach and bowel: Few scattered diverticula within colon. No associated inflammatory stranding. No definite mural thickening. No obstruction. Appendix: Normal caliber. No inflammation. PELVIS: Bladder: Unremarkable. Reproductive: Unremarkable as visualized. ABDOMEN and PELVIS: Intraperitoneal space: No significant fluid collection. No free air. Bones/joints: No acute fracture. Soft tissues: Tiny umbilical hernia containing fat. Tiny LEFT inguinal hernia containing fat. Vasculature: Unremarkable. No aneurysm. Lymph nodes: No pathologically enlarged lymph nodes. IMPRESSION: 1. Diverticulosis without definite CT evidence of diverticulitis. 2. Kidney lesion, indeterminate. Recommend nonemergent ultrasound or MRI. 3. Incidental/non-acute findings are described above.
[2017-05-30 04:06] VITALS: BP 117/77; PULSE 65; O2SAT 96
[2017-05-30 04:27] LABS: URINE BILIRUBIN NEGATIVE (NEGATIVE); URINE BLOOD NEGATIVE (NEGATIVE); URINE GLUCOSE (UA) NEGATIVE (NEGATIVE); URINE KETONE NEGATIVE (NEGATIVE); URINE LEUKOCYTE ESTERASE NEGATIVE Leu/uL (NEGATIVE); URINE PROTEIN NEGATIVE mg/dL (<30 mg/dL)
[2017-05-30 04:30] LABS: URINE APPEARANCE CLEAR (CLEAR); URINE COLOR YELLOW (YELLOW)
--- NOTE | 2017-05-30 10:12 | CARD ---
APPROVED REPORT EKG Measurement Heart [id number] <Conclusion> Probably V. Paced, A. Sensed rhythm.
== END 2017-05-30 05:25 | disposition home or self-care (01) ==
LOC: ED 01:05
DX: R10.13 Epigastric pain (principal); Z87.891 Personal history of nicotine dependence
CPT/HCPCS: 74177; 80053; 81003; 82550; 83615; 83690; 83735; 84484; 85025; 85610; 85730; 93005; 96374; 96375; 99284; C9113; J2405; Q9967

== ENCOUNTER 2017-07-30 12:17 | Emergency (ER) | payer MEDICAID ==
[2017-07-30 12:24] VITALS: BMI 26.7
--- NOTE | 2017-07-30 12:29 | ED PDOC ---
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 forearm swelling and redness x 2 days. Pt. stated that he was bitten by an unknown insect, woke up this morning with the itching and swelling, has pain, no numbness or tingling, no night sweat, no rash, no palpitation, no change in vision, no other medical or psychological complaints. Past Medical History - Provider Review Nursing Documentation Reviewed: Yes - Infectious Disease Hx of Infectious Diseases: None - Tetanus Immunization Tetanus Immunization: Up to Date - Past Medical History Past Medical History: No Previous - Cardiac Hx Cardiac Disorders: Yes (pt uncertain if had viral myocarditis) Hx Hypertension: Yes (and hypotension) Hx Pacemaker: Yes (Pt states he has a defibrillator.) Other/Comment: Unknown cardiac problem-patient does not know. pacemaker/ defibrillator was implanted september 2016 at [facility], november 2016 2nd sx to fix lead, february 2017 sx #3 to fix lead, surgical incision under left breast and left chest covered with dermabond - Pulmonary Hx Respiratory Disorders: No - Neurological Hx Neurological Disorder: No - HEENT Hx HEENT Disorder: No - Renal Hx Renal Disorder: Yes Hx Kidney Stones: Yes - Endocrine/Metabolic Hx Endocrine Disorders: No - Hematological/Oncological Hx Blood Disorders: No - Integumentary Hx Dermatological Disorder: No - Musculoskeletal/Rheumatological Hx Musculoskeletal Disorders: No Hx Falls: No - Gastrointestinal Hx Gastrointestinal Disorders: No - Genitourinary/Gynecological Hx Genitourinary Disorders: No - Psychiatric Hx Psychophysiologic Disorder: No Hx Substance Use: No - Past Surgical History Past Surgical History: No Previous - Surgical History Hx Cardiac Catheterization: Yes Other/Comment: Pt reports he had a defibrillator inserted at [facility] - Anesthesia Hx Anesthesia: Yes Hx Anesthesia Reactions: No Hx Malignant Hyperthermia: No - Suicidal Assessment Feels Threatened In Home Enviroment: No Family/Social History - Physician Review Nursing Documentation Reviewed: Yes Family/Social History: Unknown Family HX Smoking Status: Former Smoker Hx Alcohol Use: No Hx Substance Use: No Hx Substance Use Treatment: No Allergies/Home Meds Allergies/Adverse Reactions: Allergies No Known Allergies Allergy (Verified 12/02/16 12:48) Home Medications: Home Meds Medication Instructions Recorded Confirmed Atorvastatin [Lipitor] 10 mg PO DAILY 10/02/16 07/30/17 Lisinopril [Zestril] 10 mg PO DAILY 10/02/16 07/30/17 Metoprolol Succinate 50 mg PO DAILY 10/02/16 07/30/17 Omeprazole 40 mg PO DAILY 10/02/16 07/30/17 Review of Systems - Review of Systems Constitutional: absent: Fatigue, Fevers Eyes: absent: Vision Changes ENT: absent: Hearing Changes Respiratory: absent: SOB, Cough Cardiovascular: absent: Chest Pain Gastrointestinal: absent: Abdominal Pain, Diarrhea, Nausea, Vomiting Musculoskeletal: absent: Arthralgias, Back Pain Skin: Rash, Skin Lesions, Cellulitis. absent: Pruritis, Laceration, Abscess, Ulcer Neurological: absent: Headache, Dizziness Psychiatric: absent: Anxiety, Depression, Suicidal Ideation Physical Exam Vital Signs Reviewed: Yes Vital Signs Temp Pulse Resp BP Pulse Ox 07/30/17 12:27 97.9 F 82 18 148/87 97 Temperature: Afebrile Blood Pressure: Normal Pulse: Regular Respiratory Rate: Normal Appearance: Positive for: Well-Appearing, Non-Toxic, Comfortable Pain Distress: Moderate Mental Status: Positive for: Alert and Oriented X 3 - Systems Exam Head: Present: Atraumatic, Normocephalic Pupils: Present: PERRL Extroacular Muscles: Present: EOMI Conjunctiva: Present: Normal Mouth: Present: Moist Mucous Membranes Neck: Present: Normal Range of Motion Respiratory/Chest: Present: Clear to Auscultation, Good Air Exchange. No: Respiratory Distress, Accessory Muscle Use Cardiovascular: Present: Regular Rate and Rhythm, Normal S1, S2. No: Murmurs Abdomen: Present: Normal Bowel Sounds. No: Tenderness, Distention, Peritoneal Signs Back: Present: Normal Inspection Upper Extremity: Present: Normal Inspection, Other (LUE: visible 2 insect bites approx. 1cm diameter with erythematous and swelling noted on the extensor forearm, no streaking or ulcers, no bullseye or target signs, FROM without limitation, sensation intact, motor 5/5, +radial pulse, capillary refill< 2 seconds, neurovascular intact. ). No: Cyanosis, Edema Lower Extremity: Present: Normal Inspection. No: Edema Neurological: Present: GCS=15, CN II-XII Intact, Speech Normal Skin: Present: Warm, Dry, Normal Color. No: Rashes Psychiatric: Present: Alert, Oriented x 3, Normal Insight, Normal Concentration Medical Decision Making ED Course and Treatment: 07/30/17 12:49 -labs/drug screen -LUE venuous doppler -Lt. forearm xray -CXR -IV benadry/toradol -observe and reassess 07/30/17 14:20 -Labs are non-significant, afebrile, no hand/finger swelling, no elevation of wbc. -Chest xray show: no active disease -Lt. forearm xray: no active disease -IV vancomycin and zosyn ordered as initial start, stable for outpatient oral antibiotic. I advised the patient to return back to the ER in 2 days for follow up. -pain resolved and swelling decreased. -Discharge home with keflex, bactrim ds, zyrtec, naproxen, follow up with your own pmd and Infectious disease within 2 days, return to the ER for any new or worsening signs or symptoms. - Lab Interpretations Lab Results: 07/30/17 12:50 07/30/17 12:50 Lab Results 07/30/17 12:50: WBC 6.5 D, RBC 4.98, Hgb 15.7, Hct 46.4, MCV 93.2, MCH 31.5, MCHC 33.8, RDW 13.3, Plt Count 221, MPV 10.0, Gran % 57.8, Lymph % (Auto) 31.1, Henry % (Auto) 5.6, Eos % (Auto) 5.3 H, Baso % (Auto) 0.2, Gran # 3.74, Lymph # ( Auto) 2.0, [place] # (Auto) 0.4, Eos # (Auto) 0.3, Baso # (Auto) 0.01 07/30/17 12:50: Sodium 144, Potassium 4.2, Chloride 104, Carbon Dioxide 29, Anion Gap 15, BUN 15, Creatinine 0.7 L, Est GFR ( Amer) > 60, Est GFR ( Non-Af Amer) > 60, Random Glucose 118 H, Calcium 9.8, Magnesium 2.3 H, Total Bilirubin 0.3, AST 39, ALT 52, Alkaline Phosphatase 90, Total Protein 7.2, Albumin 4.4, Globulin 2.8, Albumin/Globulin Ratio 1.6 - RAD Interpretation Radiology Orders: 07/30/17 12:38 FOREARM LEFT [RAD] Stat DUPLEX UPPER EXTRM VEIN LEFT [US] Stat 07/30/17 13:07 CHEST TWO VIEWS (PA/LAT) [RAD] Stat LUE Venuous doppler: as per preliminary report, no acute DVT Chest xray: no active disease Lt. forearm: unremarkable Hat Brim Curler: Radiologist - Medication Orders Current Medication Orders: Vancomycin HCl (Vancomycin 1gm) 1 gm in 250 mls @ 167 mls/hr IVPB STAT STA PRN Reason: Protocol Stop: 07/30/17 14:51 Discontinued Medications Diphenhydramine HCl (Benadryl) 50 mg IVP STAT STA Stop: 07/30/17 12:40 Last Admin: 07/30/17 13:01 Dose: 50 mg IVP Administration Document 07/30/17 13:01 (Rec: 07/30/17 13:[email or web address] Charges for Administration # of IVP Administrations 1 Piperacillin Sod/Tazobactam Sod (Zosyn 3.375 In Ns 100ml) 100 mls @ 200 mls/hr IVPB STAT STA PRN Reason: Protocol Stop: 07/30/17 13:51 Ketorolac Tromethamine (Toradol) 30 mg IVP STAT STA Stop: 07/30/17 12:39 Last Admin: 07/30/17 13:01 Dose: 30 mg MAR Pain Assessment Document 07/30/17 13:01 (Rec: 07/30/17 13:01 [email or web address]) Pain Reassessment Is this a pain reassessment? No IVP Administration Document 07/30/17 13:01 (Rec: 07/30/17 13:01 [email or web address]) Charges for Administration # of IVP Administrations 1 - PA / DATA SUPPORT SPECIALIST / Resident Statement /DO has reviewed & agrees with the documentation as recorded. Disposition/Present on Arrival - Present on Arrival Any Indicators Present on Arrival: No History of DVT/PE: No History of Uncontrolled Diabetes: No Urinary Catheter: No History of Decub. Ulcer: No History Surgical Site Infection Following: None - Disposition Have Diagnosis and Disposition been Completed?: Yes Diagnosis: Insect bite, Cellulitis Disposition: HOME/ ROUTINE Disposition Time: 12:50 Patient Plan: Discharge Patient Problems: Current Active Problems Problem Status Onset Insect bite Acute Cellulitis Acute Condition: IMPROVED Discharge Instructions (ExitCare): Cellulitis (ED) Additional Instructions: -Discharge home with keflex, bactrim ds, zyrtec, naproxen, follow up with your own pmd and Infectious disease within 2 days, return to the ER for any new or worsening signs or symptoms. Prescriptions: Cephalexin [Keflex] 500 mg PO QID #40 capsule Cetirizine HCl [Zyrtec] 10 mg PO DAILY #14 tab.rapdis Naproxen 500 mg PO BID PRN #20 tablet PRN Reason: Other Sulfamethoxazole/Trimethoprim [Bactrim DS 800 mg-160 mg] 1 tab PO BID #20 tab Referrals: Avtar Porter APN [Primary Care Provider] - Follow up with primary Peyman Abarca MD [Staff Provider] - Follow up with primary Forms: WORK NOTE
[2017-07-30] MEDS ORDERED: DiphenhydrAMINE 50 mg/ml Inj IVP STA (12:39)
[2017-07-30 13:15] LABS: BASO # 0.01 K/mm3 (0.0-2.0); BASO % 0.2 % (0.0-3.0); EOS # 0.3 (0.0-0.7); EOS % 5.3 % (1.5-5.0); GRAN # 3.74 (1.4-6.5); GRAN % 57.8 % (50.0-68.0); HEMOGLOBIN 15.7 g/dL (14.0-18.0); LYMPH % 31.1 % (22.0-35.0); MEAN CELL VOLUME 93.2 fl (80.0-105.0); MEAN CORPUSCULAR HEMOGLOBIN 31.5 pg (25.0-35.0); MEAN CORPUSCULAR HGB CONC 33.8 g/dl (31.0-37.0); MONO # 0.4 (0.1-0.6); MONO % 5.6 % (1.0-6.0); RBC 4.98 10^6/uL (3.5-6.1); RED CELL DISTRIBUTION WIDTH 13.3 % (11.5-14.5); WHITE BLOOD COUNT 6.5 10^3/ul (4.5-11.0)
[2017-07-30 13:20] LABS: ALB/GLOB RATIO 1.6 (1.1-1.8); ALBUMIN 4.4 g/dL (3.0-4.8); ALT/SGPT 52 U/L (7-56); AST/SGOT 39 U/L (17-59); BLOOD UREA NITROGEN 15 mg/dL (7-21); CALCIUM 9.8 mg/dL (8.4-10.5); GFR AFRICAN-AMERICAN > 60; GFR NON-AFRICAN AMERICAN > 60; MAGNESIUM 2.3 mg/dL (1.7-2.2)
[2017-07-30] MEDS ORDERED: Piperacillin/Tazobact 3.375 gm 100 ML IVPB STA (13:22)
[2017-07-30] MEDS ORDERED: Vancomycin 1gm in NS 250ml 1 GM/250 ML BAG IVPB STA (13:22)
--- NOTE | 2017-07-30 14:19 | US ---
PROCEDURE: Left upper extremity venous ultrasound HISTORY: Arm pain and swelling. Evaluate for deep venous thrombosis. PHYSICIAN(S): Bayron Guzman MD. FINDINGS: The visualized leftinternal jugular vein is sonographically normal and compressible. No evidence of obstruction or thrombus is seen. The visualized segments of the left subclavian vein are patent with normal waveforms. No sonographic evidence of obstruction or thrombosis is seen. The visualized deep venous system of the proximal leftupper extremity is sonographically normal and compressible. IMPRESSION: 1. No sonographic evidence for deep venous thrombosis in the visualized segments of the left upper extremity.
--- NOTE | 2017-07-30 14:22 | RAD ---
HISTORY: medical clearance COMPARISON: 05/17/2017 TECHNIQUE: Chest PA and lateral FINDINGS: LUNGS: No active pulmonary disease. PLEURA: No significant pleural effusion identified. No pneumothorax apparent. CARDIOVASCULAR: Normal. OSSEOUS STRUCTURES: No significant abnormalities. VISUALIZED UPPER ABDOMEN: Normal. OTHER FINDINGS: Pacemaker IMPRESSION: No active disease.
--- NOTE | 2017-07-30 14:23 | RAD ---
PROCEDURE: Radiographs of the Left Forearm HISTORY: lt. forearm cellulitis, free air COMPARISON: None available. TECHNIQUE: Frontal and lateral views obtained. FINDINGS: BONES: No fracture or destructive lesion. JOINT SPACES: Unremarkable. OTHER FINDINGS: None. IMPRESSION: Unremarkable radiographs of the left forearm.
[2017-07-30 16:46] VITALS: BP 142/86; PULSE 81; RESP 16; TEMP 98; O2SAT 98
== END 2017-07-30 17:07 | disposition home or self-care (01) ==
LOC: ED 12:17
DX: S50.862A Insect bite (nonvenomous) of left forearm, initial encounter (principal); L03.114 Cellulitis of left upper limb; W57.XXXA Bitten or stung by nonvenomous insect and other nonvenomous arthropods, initial encounter; Y92.9 Unspecified place or not applicable
CPT/HCPCS: 71046; 73090; 80053; 83735; 85025; 93971; 96365; 96366; 96367; 96375; 99283; J1200; J1885; J2543

== ENCOUNTER 2018-01-07 13:03 | Emergency (ER) | payer MEDICAID ==
[2018-01-07 13:32] VITALS: RESP 18; BMI 26.9
--- NOTE | 2018-01-07 14:16 | ED PDOC ---
Arrival/HPI - General Historian: Patient - History of Present Illness Time/Duration: 24 hours Symptom Onset: Gradual Symptom Course: Unchanged Activities at Onset: Rest Context: Sitting, Standing, Exertion - General Chief Complaint: Dizziness/Lightheaded Time Seen by Provider: 01/07/18 13:09 - History of Present Illness Narrative History of Present Illness (Text): 01/07/18 14:13 Patient is a 42 year old male with PMH of myocarditis (s/p pacemaker/ defibrillator placement in 2016) presents to ED with dizziness that started yesterday and has worsened since. He states that it is constant and does not improve when he lies down. He is concerned because he thinks it may be related to his heart. Patient reports his defibrillator has gone off 3 times in the past , most recently one month ago. It causes him to loss consciousness and have chest pains for a week after. He is in the process of finding a new draw frame operator as he is planning on moving to [place]. He also complains of trouble urinating for the past few weeks. He states he has difficulty initiating urination. He also endorses neck pain, blurry vision, and some intermittent SOB that is worse with standing and exertion. He denies nausea /vomiting/diarrhea, dysuria, gross hematuria, cough, wheezing, chest pain, fever , chills, night sweats. (Stefano Donovan) Past Medical History - Provider Review Nursing Documentation Reviewed: Yes - Travel History Have you recently traveled outside [place] w/in the past 3 mons?: No - Infectious Disease Hx of Infectious Diseases: None - Tetanus Immunization Tetanus Immunization: Up to Date - Past Medical History Past Medical History: No Previous - Cardiac Hx Cardiac Disorders: Yes (pt uncertain if had viral myocarditis) Hx Hypertension: Yes (and hypotension) Hx Pacemaker: Yes (Pt states he has a defibrillator.) Other/Comment: Unknown cardiac problem-patient does not know. pacemaker/ defibrillator was implanted september 2016 at [facility], november 2016 2nd sx to fix lead, february 2017 sx #3 to fix lead, surgical incision under left breast and left chest covered with dermabond - Pulmonary Hx Respiratory Disorders: No - Neurological Hx Neurological Disorder: No - HEENT Hx HEENT Disorder: No - Renal Hx Renal Disorder: Yes Hx Kidney Stones: Yes - Endocrine/Metabolic Hx Endocrine Disorders: No - Hematological/Oncological Hx Blood Disorders: No - Integumentary Hx Dermatological Disorder: No - Musculoskeletal/Rheumatological Hx Musculoskeletal Disorders: No Hx Falls: No - Gastrointestinal Hx Gastrointestinal Disorders: No - Genitourinary/Gynecological Hx Genitourinary Disorders: No - Psychiatric Hx Psychophysiologic Disorder: No Hx Substance Use: No - Past Surgical History Past Surgical History: No Previous - Surgical History Hx Cardiac Catheterization: Yes Other/Comment: Pt reports he had a defibrillator inserted at [facility] - Anesthesia Hx Anesthesia: Yes Hx Anesthesia Reactions: No Hx Malignant Hyperthermia: No - Suicidal Assessment Feels Threatened In Home Enviroment: No Family/Social History - Physician Review Nursing Documentation Reviewed: Yes Family/Social History: No Known Family HX Smoking Status: Former Smoker Hx Alcohol Use: No Hx Substance Use: No Hx Substance Use Treatment: No Allergies/Home Meds Allergies/Adverse Reactions: Allergies No Known Allergies Allergy (Verified 12/02/16 12:48) Home Medications: Home Meds Medication Instructions Recorded Confirmed Atorvastatin [Lipitor] 10 mg PO DAILY 10/02/16 01/07/18 Lisinopril [Zestril] 10 mg PO DAILY 10/02/16 01/07/18 Metoprolol Succinate 50 mg PO DAILY 10/02/16 01/07/18 Review of Systems - Physician Review All systems were reviewed & negative as marked: Yes - Review of Systems Constitutional: absent: Weight Change, Fevers Eyes: Vision Changes. absent: Photophobia ENT: absent: Hearing Changes, Tinnitus Respiratory: SOB. absent: Cough, Wheezing Cardiovascular: absent: Chest Pain, Palpitations, Edema Gastrointestinal: absent: Abdominal Pain, Diarrhea, Nausea, Vomiting Genitourinary Male: Urinary Output Changes, Other (difficulty initiating urine stream). absent: Dysuria, Frequency, Hematuria Musculoskeletal: absent: Arthralgias, Back Pain Skin: absent: Rash, Pruritis Neurological: Headache, Dizziness. absent: Gait Changes, Speech Changes, Facial Droop Endocrine: absent: Diaphoresis Hemo/Lymphatic: absent: Adenopathy Psychiatric: absent: Anxiety, Depression Physical Exam Vital Signs Reviewed: Yes Temperature: Afebrile Blood Pressure: Normal Pulse: Regular Respiratory Rate: Normal Appearance: Positive for: Uncomfortable Pain Distress: Moderate Mental Status: Positive for: Alert and Oriented X 3 - Systems Exam Head: Present: Atraumatic, Normocephalic Pupils: Present: PERRL Extroacular Muscles: Present: EOMI, Other (nystagmus noted in R eye on lateral movements) Ears: Present: Normal Mouth: Present: Moist Mucous Membranes Pharnyx: Present: Normal. No: ERYTHEMA, EXUDATE Nose (External): Present: Atraumatic Neck: Present: Normal Range of Motion, Paraspinal Tenderness. No: JVD, Lymphadenopathy Respiratory/Chest: Present: Clear to Auscultation. No: Accessory Muscle Use, Wheezes, Rales, Rhonchi Cardiovascular: Present: Regular Rate and Rhythm, Normal S1, S2. No: Murmurs, Rub, Gallop Abdomen: Present: Normal Bowel Sounds. No: Tenderness, Distention, Rebound, Guarding Back: Present: Normal Inspection. No: CVA Tenderness Upper Extremity: Present: Normal Inspection. No: Cyanosis, Edema Lower Extremity: Present: Normal Inspection. No: Edema Neurological: Present: CN II-XII Intact, Speech Normal, Motor Func Grossly Intact, Norm Deep Tendon Reflexes Skin: Present: Warm, Dry Psychiatric: Present: Alert, Oriented x 3 Vital Signs Temp Pulse Resp BP Pulse Ox 01/07/18 13:08 97.9 F 80 18 132/86 97 Medical Decision Making Re-evaluation Time: 15:44 Reassessment Condition: Improving,but remains with symptoms - Lab Interpretations I have reviewed the lab results: Yes Interpretation: All labs normal - EKG Interpretation Interpreted by ED Physician: Yes (consistent with paced rhythm) Type: 12 lead EKG ED Course and Treatment: 01/07/18 14:30 Patient re-examined after receiving meclizine and tylenol for his MCWILLIAMS. He states the dizziness and MCWILLIAMS have improved. 01/07/18 15:37 Patient re-examined. He is continuing to feel better. He states he would be fine going home with a meclizine prescription. Encouraged him to continue tylenol or ibuprofen for the headache. He was able to urinate in ED, will send for UA. Assuming UA is negative, we will plan on discharge home with meclizine PRN and encourage him to follow up with PMD for further treatment. 01/07/18 16:52 Urinalysis is negative. He was seen last year with CT head that was negative. Do not believe repeat CT is warranted. His dizziness is most likely secondary to vertigo as he is improving with meclizine. Will discharge and encourage PCP and cardiology follow up especially as he is planning to [place] out of [place]. (Stefano Donovan) Patient Seen With Resident: In agreement with resident note. Patient was seen and evaluated with resident, came up with plan and treatment together. (Aamir Chavez) - Lab Interpretations Lab Results: 01/07/18 14:10 01/07/18 14:10 Lab Results 01/07/18 15:57: Urine Color Yellow, Urine Appearance Clear, Urine pH 6.0, Ur Specific Kiel >= 1.030, Urine Protein Trace H, Urine Glucose (UA) Negative, Urine Ketones Negative, Urine Blood Negative, Urine Nitrate Negative, Urine Bilirubin Negative, Urine Urobilinogen 0.2, Ur Leukocyte Esterase Negative, Urine RBC Negative, Urine WBC Negative 01/07/18 14:10: TSH 3rd Generation 0.58 01/07/18 14:10: Sodium 143, Potassium 3.8, Chloride 108 H, Carbon Dioxide 26, Anion Gap 14, BUN 17, Creatinine 0.6 L, Est GFR ( Amer) > 60, Est GFR ( Non-Af Amer) > 60, Random Glucose 120 H, Calcium 9.2, Total Bilirubin 0.2, AST 21, ALT 27, Alkaline Phosphatase 83, Total Protein 6.5, Albumin 4.2, Globulin 2.3, Albumin/Globulin Ratio 1.8 01/07/18 14:10: WBC 6.0, RBC 4.69, Hgb 14.6, Hct 42.7, MCV 91.0, MCH 31.1, MCHC 34.2, RDW 13.6, Plt Count 190, MPV 9.6, Gran % 53.3, Lymph % (Auto) 36.5 H, [place] % (Auto) 6.7 H, Eos % (Auto) 3.3, Baso % (Auto) 0.2, Gran # 3.20, Lymph # ( Auto) 2.2, [place] # (Auto) 0.4, Eos # (Auto) 0.2, Baso # (Auto) 0.01 - RAD Interpretation Narrative RAD Interpretations (Text): 01/07/18 15:44 CXR without acute findings (Stefano Donovan) Radiology Orders: 01/07/18 13:42 CHEST PORTABLE [RAD] Routine - Medication Orders Current Medication Orders: Discontinued Medications Acetaminophen (Tylenol 325mg Tab) 650 mg PO STAT STA Stop: 01/07/18 13:42 Last Admin: 01/07/18 14:12 Dose: 650 mg Meclizine HCl (Antivert) 12.5 mg PO STAT STA Stop: 01/07/18 13:42 Last Admin: 01/07/18 14:10 Dose: 12.5 mg Disposition/Present on Arrival - Present on Arrival Any Indicators Present on Arrival: No History of DVT/PE: No History of Uncontrolled Diabetes: No Urinary Catheter: No History of Decub. Ulcer: No History Surgical Site Infection Following: None - Disposition Have Diagnosis and Disposition been Completed?: Yes Disposition Time: 16:51 Patient Plan: Discharge - Disposition Diagnosis: Dizziness, Urinary hesitancy Disposition: HOME/ ROUTINE Patient Problems: Current Active Problems Problem Status Onset Dizziness Acute Urinary hesitancy Acute Condition: FAIR Discharge Instructions (ExitCare): Vertigo (a Type of Dizziness) Prescriptions: Meclizine [Meclizine*] 25 mg PO Q6 #30 tab Referrals: Avtar Porter TRANSFER KNITTER [Primary Care Provider] - Follow up with primary Forms: [employer] (Telugu)
[2018-01-07 14:19] LABS: BASO # 0.01 K/mm3 (0.0-2.0); BASO % 0.2 % (0.0-3.0); EOS # 0.2 (0.0-0.7); EOS % 3.3 % (1.5-5.0); GRAN # 3.2 (1.4-6.5); GRAN % 53.3 % (50.0-68.0); HEMOGLOBIN 14.6 g/dL (14.0-18.0); LYMPH # 2.2 (1.2-3.4); LYMPH % 36.5 % (22.0-35.0); MEAN CORPUSCULAR HEMOGLOBIN 31.1 pg (25.0-35.0); MEAN CORPUSCULAR HGB CONC 34.2 g/dl (31.0-37.0); MEAN PLATELET VOLUME 9.6 fl (7.0-11.0); MONO # 0.4 (0.1-0.6); MONO % 6.7 % (1.0-6.0); RBC 4.69 10^6/uL (3.5-6.1); RED CELL DISTRIBUTION WIDTH 13.6 % (11.5-14.5)
[2018-01-07 14:29] LABS: ALB/GLOB RATIO 1.8 (1.1-1.8); ALBUMIN 4.2 g/dL (3.0-4.8); ALT/SGPT 27 U/L (7-56); AST/SGOT 21 U/L (17-59); BLOOD UREA NITROGEN 17 mg/dL (7-21); CALCIUM 9.2 mg/dL (8.4-10.5); GFR AFRICAN-AMERICAN > 60; GFR NON-AFRICAN AMERICAN > 60
--- NOTE | 2018-01-07 15:00 | RAD ---
Date of service: 01/07/2018 HISTORY: dizziness, cardiac hx COMPARISON: 07/30/2017 FINDINGS: LUNGS: No active pulmonary disease. PLEURA: No significant pleural effusion identified, no pneumothorax apparent. CARDIOVASCULAR: Normal. OSSEOUS STRUCTURES: No significant abnormalities. VISUALIZED UPPER ABDOMEN: Normal. OTHER FINDINGS: Dual lead pacemaker and external leads IMPRESSION: No active disease.
[2018-01-07 16:07] LABS: URINE BILIRUBIN NEGATIVE (NEGATIVE); URINE BLOOD NEGATIVE (NEGATIVE); URINE GLUCOSE (UA) NEGATIVE (NEGATIVE); URINE LEUKOCYTE ESTERASE NEGATIVE Leu/uL (NEGATIVE); URINE PROTEIN TRACE mg/dL (<30 mg/dL); URINE UROBILINOGEN 0.2 E.U./dL (<1 E.U./dL)
[2018-01-07 16:22] LABS: URINE APPEARANCE CLEAR (CLEAR); URINE COLOR YELLOW (YELLOW)
[2018-01-07 16:37] LABS: URINE RBC NEGATIVE /hpf (0-2); URINE WBC NEGATIVE /hpf (0-6)
[2018-01-07 17:17] VITALS: BP 115/70; PULSE 63; TEMP 98; O2SAT 96
--- NOTE | 2018-01-08 09:11 | CARD ---
APPROVED REPORT Date of service: 01/07/2018 EKG Measurement Heart [id number] <Conclusion> Electronic ventricular pacemaker
== END 2018-01-07 17:00 | disposition home or self-care (01) ==
LOC: ED 13:03
DX: R42 Dizziness and giddiness (principal); R39.11 Hesitancy of micturition; I10 Essential (primary) hypertension; Z87.891 Personal history of nicotine dependence; Z95.0 Presence of cardiac pacemaker